=== PATIENT | female | born 1965 | race Caucasian/White ===

== ENCOUNTER 2017-02-19 13:13 | Emergency (ER) | payer MEDICARE, MEDICAID ==
[2017-02-19 13:27] VITALS: BP 121/88
--- NOTE | 2017-02-19 14:32 | UC ---
Skin Complaint HPI - HPI Summary HPI Summary: 51 y/o female presents to the urgent care c/o rash that started 3 weeks ago when she was in [place]. She states she was walking at night time and a mosquito bit her left tight. Next day she wake up with a rash and her Rt eye was mildly swollen. Now the rash has been appearing in different parts of the body since then. Today rash is in her abdomen, back of neck, left tight arm. It itches a lot. Patient denies SOB, fever, N/V/D, chest pain, headaches. Pt reports she has an appt this coming Thursday with her psychiatrist Dr Rich - History of Current Complaint Chief Complaint: UCSkin Time Seen by Provider: 02/19/17 14:06 Stated Complaint: RASH Hx Obtained From: Patient Hx Last Menstrual Period: 2 weeks ago ?: No Onset/Duration: Sudden Onset, Lasting Days, Still Present Skin Exposure Onset/Duration: Days Ago - 3 weeks ago Onset Severity: Moderate Current Severity: Moderate Pain Intensity: 0 Pain Scale Used: 0-10 Numeric Location: Diffuse - abdomen, RT antecubital fossa of Rt arm, left thight, back of the neck Character: Pruritus Aggravating: Touch Alleviating: Nothing Associated Signs & Symptoms: Negative: Nausea, Vomiting, Numbness, Fever, Wheezing, Red Streaks Related History: Possible Reaction to: Insect - Allergy/Home Medications Allergies/Adverse Reactions: Allergies Allergy/AdvReac Type Severity Reaction Status Date / Time Bee Venom Allergy Severe Anaphylatic Verified 02/19/17 13:46 Shock Latex Allergy Severe Rash Verified 02/19/17 13:46 Home Medications: Home Medications Ferrous Sulfate [Fe Tabs] 1 tab PO DAILY 02/19/17 [History Confirmed 02/19/17] Review of Systems Constitutional: Negative Skin: Rash Eyes: Negative ENT: Negative Respiratory: Negative Cardiovascular: Negative Gastrointestinal: Negative Genitourinary: Negative Motor: Negative Neurovascular: Negative Musculoskeletal: Negative Neurological: Negative Psychological: Negative All Other Systems Reviewed And Are Negative: Yes PMH/Surg Hx/FS Hx/Imm Hx Previously Healthy: Yes Psychological History: Bipolar Disorder - Surgical History Surgical History: None Surgery Procedure, Year, and Place: TONSILLECTOMY A CHILD - Family History Known Family History: Positive: Hypertension, Other Negative: Cardiac Disease, Diabetes Family History: lung cancer - Social History Alcohol Use: Occasionally Substance Use Type: None Smoking Status (MU): Former Smoker Type: Cigarettes Amount Used/How Often: 1 pack per week Have You Smoked in the Last Year: Yes When Did the Patient Quit Smoking/Using Tobacco: 20+ years Household Exposure Type: Cigarettes - Immunization History Most Recent Tetanus Shot: UNSURE Physical Exam Triage Information Reviewed: Yes Appearance: Well-Appearing, No Pain Distress, Well-Nourished, Obese Vital Signs: Initial Vital Signs Temp 98.3 F 02/19/17 13:27 Pulse 93 02/19/17 13:27 Resp 16 02/19/17 13:27 BP 121/88 02/19/17 13:27 Pulse Ox 100 02/19/17 13:27 Vital Signs Reviewed: Yes Eye Exam: Normal Eyes: Positive: Conjunctiva Clear ENT Exam: Normal ENT: Positive: Hearing grossly normal, Pharynx normal, TMs normal. Negative: Nasal congestion Dental Exam: Normal Neck exam: Normal Neck: Positive: Nontender. Negative: No Lymphadenopathy Respiratory Exam: Normal Respiratory: Positive: Chest non-tender, Lungs clear, Normal breath sounds Cardiovascular Exam: Normal Cardiovascular: Positive: RRR, No Murmur, Pulses Normal Abdominal Exam: Normal Abdomen Description: Positive: Nontender, No Organomegaly Bowel Sounds: Positive: Present Musculoskeletal Exam: Normal Musculoskeletal: Positive: Strength Intact, ROM Intact, No Edema Neurological Exam: Normal Neurological: Positive: Alert, Muscle Tone Normal Psychological Exam: Normal Skin: Positive: rashes - Positive erythematous eruption with small papules, spread in different parts of the body:Left tight, upper abdomen and lower abdomen. Rt antecubital fossa spreading to the forearm, back of the neck spreading to the scalp. no swelling. postive signs of scoriation Course/Dx - Course Course Of Treatment: rash:Positive erythematous eruption with small papules, spread in different parts of the body:Left tight, upper abdomen and lower abdomen. Rt antecubital fossa spreading to the forearm, back of the neck spreading to the scalp. no swelling. postive signs of scoriation.Pt with Hx of bee sting. Patient Rx Benadryl and hydrocortisone topical to alleviate symptoms ad advised to f/u with blow moulding machine operator if rash doen't resolve in 1 week. Patient understood and agreed. - Differential Diagnoses - Skin Complaint Differential Diagnoses: Contact Dermatitis, Eczema, Poison Dee, Scabies - Diagnoses Provider Diagnoses: unspecified rash Discharge - Discharge Plan Condition: Stable Disposition: HOME Prescriptions: Hydrocortisone 1% CREAM* 1 applic TOPICAL TID #1 applic diPHENhydraMINE PO* [Benadryl PO 25 MG TAB*] 25 mg PO TID #21 tab Patient Education Materials: Acute Rash (ED) Referrals: Ramírez MONTERROSO,Amanda Villareal [Primary Care Provider] - [facility] [Outside] - 1 Week (if rash does not resolve please call Physician referral center to make an appt with a desrmatologist) Additional Instructions: Please take medications as directed to alleviate symptoms. If symptoms worsen please return to the urgent care of PCP for further evaluation and treatment. if rash does not resolve please call Physician referral center to make an appt with a desrmatologist
== END 2017-02-19 14:54 | disposition home or self-care (01) ==
LOC: UCEAST 13:13
DX: R21 Rash and other nonspecific skin eruption (principal); F31.9 Bipolar disorder, unspecified; F17.210 Nicotine dependence, cigarettes, uncomplicated; Z91.030 Bee allergy status; Z91.040 Latex allergy status
CPT/HCPCS: 99212; G0463

== ENCOUNTER 2017-02-20 19:46 | Emergency (ER) | payer MEDICARE, MEDICAID ==
[2017-02-20] MEDS ORDERED: Ketorolac INJ* 30 MG/ML 1 ML VIAL IM ONE (21:26)
[2017-02-20] MEDS ORDERED: Metoclopramide IV* 5 MG/ML 2 ML VIAL ONE (21:27)
[2017-02-20] MEDS ORDERED: diPHENhydraMINE IV* 50 MG/ML 1 ml VIAL (BENADRYL) IM ONE (21:28)
[2017-02-20 22:11] VITALS: BP 138/78
--- NOTE | 2017-02-20 22:53 | UC ---
Guerita Canas SooYoung, scribed for Joe Guadarrama MD on 02/20/17 at 2058 . Headache HPI - HPI Summary HPI Summary: A 51 y/o F presents to [facility] with c/o bilat migraine at base of head onset today. Pt was seen at [facility] last night for c/o abd rash and rash on back of neck, D/C home with hydrocortisone and Benadryl, but states she has not taken it yet. Associated sx today: mild nausea, hot flashes, light sensitivity, neck pain. Denies: seeing flashing light. No new soaps or perfumes. Pt has an allergy to bees. Recent travel to [place] about 3 weeks ago and was bit on L upper thigh. The area became pruritic, swollen, erythematous. Two days later R eye was swollen shut, clear discharge. She states after flying, the top of her L foot was swollen, toes were becoming purple. She also states having red, pruritic blisters on inside of R elbow. States she is a non-smoker. PMHx: cervicalgia, neuropathy. - History Of Current Complaint Chief Complaint: UCHeadache Stated Complaint: HEADACHE,BUG BITES,RASH Time Seen by Provider: 02/20/17 20:55 Hx Obtained From: Patient, Family/Contract Programmer - sister present Hx Last Menstrual Period: 2 weeks ago Onset/Duration: Still Present Onset Of Symptoms: Still Present Currently Pain Is: Severe Pain Intensity: 8 Pain Scale Used: 0-10 Numeric Timing: Constant - Allergies/Home Medications Allergies/Adverse Reactions: Allergies Allergy/AdvReac Type Severity Reaction Status Date / Time Bee Venom Allergy Severe Anaphylatic Verified 02/19/17 13:46 Shock Latex Allergy Severe Rash Verified 02/19/17 13:46 PMH/Surg Hx/FS Hx/Imm Hx Previously Healthy: No - cervicalgia, sciatica - Surgical History Surgical History: None Surgery Procedure, Year, and Place: TONSILLECTOMY A CHILD - Family History Known Family History: Positive: Hypertension, Other Negative: Cardiac Disease, Diabetes Family History: lung cancer - Social History Occupation: Employed Full-time Lives: Alone Alcohol Use: Occasionally Substance Use Type: None Smoking Status (MU): Former Smoker Type: Cigarettes Amount Used/How Often: 1 pack per week Have You Smoked in the Last Year: Yes When Did the Patient Quit Smoking/Using Tobacco: 20+ years Household Exposure Type: Cigarettes - Immunization History Most Recent Tetanus Shot: UNSURE Review of Systems Neurological: Headache - migraine All Other Systems Reviewed And Are Negative: Yes Physical Exam Triage Information Reviewed: Yes Vital Signs: Initial Vital Signs Temp 99.6 F 02/20/17 19:52 Pulse 93 02/20/17 19:52 Resp 18 02/20/17 19:52 BP 150/85 02/20/17 19:52 Vital Signs Reviewed: Yes - Additional Comments The patient is well-nourished in no acute distress and in no acute pain. NON- TOXIC APPEARING. The skin is warm and dry and skin color reflects adequate perfusion. MACULAR NON -VESICULAR RASH IN ANTECUBITAL FOSSA IN R ARM, POSSIBLY HEAT RASH OR CONTACT DERMATITIS. ISOLATED BLOTCHES ON R ARM; NO BURROWING. WELL CIRCUMSCRIBED AREA ON L THIGH, DOESN'T MARTITA, NON-VESICULAR. ERYTHEMATOUS AREA AROUND HAIRLINE AT NECK, NON-VESICULAR. HEENT: The head is normocephalic and atraumatic. The pupils are equal and reactive. The conjunctivae are clear and without drainage. Nares are patent and without drainage. Mouth reveals moist mucous membranes and the throat is without erythema and exudate. The external ears are intact. The ear canals are patent and without drainage. The tympanic membranes are intact. NO PHOTOPHOBIA. Neck is supple with full range of motion and non-tender. There are no carotid bruits. There is no neck vein distension. NO NUCHAL RIGIDITY. Respiratory: Chest is non-tender. Lungs are clear to auscultation and breath sounds are symmetrical and equal. Cardiovascular: Heart is regular rate and rhythm. There is no murmur or rub auscultated. There is no peripheral edema and pulses are symmetrical and equal. Abdomen: The abdomen is soft and non-tender, OBESE. There is no organomegaly palpated. RED MACULAR RASH, NON VESICULAR, POSSIBLY CONTACT DERMATITIS ON HER PANUS. Musculoskeletal: There is no back pain noted. Extremities are non-tender with full range of motion. There is good capillary refill. There is no peripheral edema or calf tenderness elicited. GOOD PULSES DISTALLY. Neurological: Patient is alert and oriented to person, place and time. The patient has symmetrical motor strength in all four extremities. Cranial nerves are grossly intact. Deep tendon reflexes are symmetrical and equal in all four extremities. Psychiatric: The patient has an appropriate affect and does not exhibit any anxiety or depression. Headache Course/Dx - Course Course Of Treatment: Pt medications reviewed this visit. Elevated blood pressure without diagnosis of hypertension. - Differential Dx/Diagnosis Provider Diagnoses: Migraine. Contact dermatitis. Elevated blood pressure without diagnosis of hypertension. Discharge - Discharge Plan Condition: Stable Disposition: HOME Patient Education Materials: Migraine Headache (ED), Contact Dermatitis (ED) Referrals: Amanda Friedman [Primary Care Provider] - (Follow up on Thursday.) Additional Instructions: Your blood pressure reading today was 150/85, which is HYPERTENSIVE. Follow-up with your primary care provider within 4 weeks for blood pressure readings and further evaluation. Follow up with your primary care provider on 02/23/2017. Continue taking the prescriptions provided to you on your previous visit to Urgent Care. The documentation as recorded by the Guerita bond SooYoung accurately reflects the service I personally performed and the decisions made by me, Joe Guadarrama MD.
== END 2017-02-20 22:05 | disposition home or self-care (01) ==
LOC: UCEAST 19:46
DX: G43.909 Migraine, unspecified, not intractable, without status migrainosus (principal); L25.9 Unspecified contact dermatitis, unspecified cause; R03.0 Elevated blood-pressure reading, without diagnosis of hypertension; Z91.030 Bee allergy status; Z91.040 Latex allergy status; Z87.891 Personal history of nicotine dependence
CPT/HCPCS: 96372; 99212; G0463; J1200; J1885

== ENCOUNTER 2018-08-20 09:07 | Emergency (ER) | payer MEDICARE, MEDICAID ==
--- OUTSIDE RECORDS SUMMARY | 2018-08-20 09:14 | XMS REPORT | Continuity of Care Document ---
:1965 External Reference #:[id number] Author Name Bradley Calero M.D. Address [address] [place] [address] [address] [place] [address] Care Team Providers Name Role Phone HCP given Primary Care Physician Unavailable Payers Type Date Identification Numbers Payment Provider Subscriber Effective: [facility]: [id number] [facility] 2009 Services PayID: [id number] [address] [place] [address] Effective: 2013 Policy Number: [id number] Medicaid Tanmay Issa PayID: [id number] [address] [place] [address] Advance Directives Description No Information Available Problems Date Description Provider Status Onset: 05/31/2011 Backache Bradley Calero M.D. Active Onset: 05/31/2011 Bipolar disorder Bradley Calero M.D. Active Onset: 04/25/2013 Internal hemorrhoids without Juan F Roper D.O. Active complication Onset: 04/25/2013 Slow transit constipation Juan F Roper D.O. Active Onset: 09/19/2013 Neck pain Juan F Roper D.O. Active Onset: 09/19/2013 Brachial neuritis Juan F Roper D.O. Active Onset: 04/11/2015 Vitamin D deficiency Juan F Roper D.O. Active Onset: 04/11/2015 Psoriasis Juan F Roper D.O. Active Onset: 04/11/2015 Gastroesophageal reflux disease Juan F Roper D.O. Active Onset: 05/21/2015 Iron deficiency anemia Juan F Roper D.O. Active Onset: 08/20/2016 Sciatica Amanda Elmore PA Active Onset: 11/06/2016 Degeneration of lumbosacral Amanda Elmore PA Active intervertebral disc Onset: 11/06/2016 Degeneration of cervical Amanda Elmore PA Active intervertebral disc Onset: 03/11/2017 Cervical disc disorder Amanda Elmore PA Active Family History Date Family Member(s) Problem(s) Comments General Multiple family members w/ depression, alcoholism, "probably bipolar big time". 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 On SSD as of 2008. Abuse No history of abuse Tobacco Use Reviewed: 08/26/17 Patient is a current rarely cigarette smoker, smokes some days Tobacco Use Start: Unknown End: Former Cigarette Smoker quit summer 2017 Unknown ETOH Use Rare Alcohol Use Recreational Drug Use Denies Drug Use Tobacco Use Start: Unknown Patient is a current With alcohol smoker, smokes some days Tobacco Use Start: Unknown End: Patient is a former quit summer 2017 Unknown smoker Smoking Status Reviewed: 07/12/18 Patient is a former quit summer 2017 smoker Sun Exposure Minimum amount of sun exposure. Uses sunscreen Seat Belt/Car Seat Always uses a seat belt Currently Active The patient is currently not sexually active Contraceptive Methods Current methods of control used include diaphragm Allergies, Adverse Reactions, Alerts Date Description Reaction Status Severity Comments 11/09/2007 Latex Active 05/10/2010 Bee Sting Active Medications Medication Date Status Form Strength Qnty SIG Indications Ordering Provider Keflex 07/21/ Active Capsules 500mg 30caps 1 tab by L03.311 wagner, 2017 mouth Bradley, three M.D. times a day x10 days Abilify 06/30/ Active Tablets 10mg take one 2017 tablet by Bradley, mouth M.D. every day for mood Lipoic Acid 12/29/ Active daily Unknown 2017 Zinc 12/29/ Active 1 daily Unknown 2017 Alpha Betic 02/22/ Active Capsules 200mg as Unknown 2017 directed Hydrocortisone 02/19/ Active Cream 1% Apply To Unknown 2017 Affected Area S Three Times A Day Ferrous Sulfate / Active Tablets 325(65Fe) 180tab take 1 [place], 2015 mg s tablet by Juan F, mouth two D.O. times daily Vitamin D3 04/11/ Active Capsules 5000Unit 90caps take one E55.9 2014 capsule Juan F, by mouth D.O. every day or 7 tablets once a week Epipen 2-Karl 04/11/ Active Solution 0.3mg/0.3M 2units use as T63.94xA Krystian Calero Auto-Injec sheela Narvaez for M.D. insect sting causing swelling of throat or severe reaction, then go to hospital. Z91.030 Calcipotriene 04/11/2015 Active Cream 0.005% 60units Apply To L40.0 [place], Affected Juan F, Area(S) Two D.O. Times Daily For Relief Of Psoriasis Omeprazole 10/04/[address] 20mg 90caps take 1 R11.0 [place], capsule by Juan F, mouth once D.O. daily K21.9 [place] Carbonate 07/06/2012 Active Tablets 150mg 5 po qhs F31.81 Unknown Diazepam 10/18/2007 Active Tablets 5mg 60tabs 1/2-1 PO bid F31.81 Unknown For Anxiety prn F41.9 M62.838 Abilify Hx Tablets 5mg 30tabs 1/2 tab qhs Unknown 018 - 018 Hydroxyzine Pamoate Hx Capsules 25mg 90caps take one Z91.038 [place], 017 - capsule by Juan F, D.O. mouth three 017 times a day as needed for anxiety/itchin g will make you drowsy R21 Banophen 02/19/2017 - Hx Capsules 25mg 21caps Take One Unknown 02/23/2017 Capsule By Mouth Three Times A Day x 7 days Benadryl Allergy 02/19/2017 - Hx Tablets 25mg 21tabs 1 tablet by Unknown 02/23/2017 mouth three times daily Orphenadrine 08/24/2016 - Hx Tablets ER 100mg 60tabs Take 1 Tablet M5 [place], Citrate ER 10/14/2016 12HR By Mouth Two 4. Amanda, PA Times Daily as 40 Needed For Spasms Keflex 08/20/2016 - Hx Capsules 500mg 30caps 1 tab by mouth L0 [place], 10/14/2016 three times a 2. ANABELL Patel day x10 days 41 1 Metaxalone 08/20/2016 - Hx Tablets 800mg 90tabs 1 tab by mouth M5 [place], 08/24/2016 three times a 4. ANABELL Patel day as needed 40 spasms Cyclobenzaprine 06/25/2016 - Hx Tablets 10mg 90tabs 1 tab by mouth M5 [place], HCL 08/20/2016 three times a 4. ANABELL Patel day as needed 5 for spasms Vitamin D 05/21/2015 - Hx Capsules 96299Uk take 1 capsule [place], (Ergocalciferol) 05/21/2015 it by mouth every Juan F, week D.O. Iron Supplement 04/12/2015 - Hx Tablets 325(65F 180tabs 1 by mouth bid [facility], 06/24/2016 e) mg Juan F, D.O. Vitamin D 04/10/2015 - Hx Tablets daily Unknown 05/21/2015 Benzoyl 07/17/2014 - Hx Gel 5-3% 46.600gm apply to skin 70 [facility], Peroxide-Erythromy 10/10/2015 twice a day. 4. Juan F, julieta 8 D.O. Epipen 2-Karl 01/26/2014 - Hx Soaj 0.3mg/0 1units use as 98 [facility], 04/11/2015 .3ML directed for 9. Juan F, anaphylactic 5 D.O. reactions to bee stings V15.06 Trazodone HCL 09/19/2013 - Hx Tablets 50mg 1 po at hs Unknown 01/25/2014 Lidocaine HCL 04/26/2013 - Hx Gel 2% 30ml apply to area 455.0 [facility], 09/19/2013 qid prn Clark Rogel.O. Anusol-HC 04/25/2013 - Hx Cream 2.5% 1units [address] 455.0 [facility], 09/19/2013 of rectum Juan F D.O. every 3 hours Magnesium 04/25/2013 - Hx Powder 1bottl 1 tsp by 564.0 [facility], Citrate 09/19/2013 e mouth every 1 Juan F, D.O. day titrate to daily soft stool Lidocaine 04/25/2013 - Hx Cream 3% 1units [address] 455.0 [facility], 04/26/2013 of rectum Juan F, D.O. four times a day as needed Celebrex 09/07/2012 - Hx Capsules 200mg 90caps Take 1 [facility]8 [facility] 02/[facility]2017 Capsule By 9 Juan F, D.O. Mouth One Time Daily O71.6 M54.2 Tizanidine HCL 09/07/2012 - Hx Tablets 4mg 90tabs Take 1/2 To M54.89 [facility], 03/10/2017 1 Tablet By Juan F, D.O. Mouth One Time Daily as Needed -- Maximum Dose Of 1 Per Day M62.40 M54.2 Abilify 08/25/2012 - Hx Tablets 5mg 1 po every day 296.89 Unknown 01/21/2013 Gabapentin 06/21/2012 - Hx Capsules 100mg 1-2 capsules po F31.81 [facility], 02/23/2017 up to 3 times a Juan F, D.O. day M54.2 M54.12 Gabapentin 03/02/2012 - Hx Capsules 300mg 1 po capsule Unknown 09/19/2013 prn Triamcinolone 09/10/2011 - Hx Cream 0.1% 30gm apply a thin L29. [place] , Acetonide 06/24/2016 layer to 9 Bradley, affected M.D. area on left forearm twice a day as needed for itching Anusol-HC 05/31/2011 - Hx Cream 2.5% 30gm apply to 455. [place], 04/11/2015 affected 5 Bradley, area as M.D. needed twice daily (for hemorrhoids) Gabapentin 01/28/2010 - Hx Capsules 300mg 90ca 1 po Qam and 296. Unknown 05/09/2010 ps 1-2 po qhs 89 Lamotrigine 01/28/2010 - Hx 25mg 1 po qd 296. Unknown 05/10/2010 89 Abilify 01/28/2010 - Hx Tablets 15mg 1 po qd 296. Unknown 05/30/2011 89 Abilify 11/07/2008 - Hx Tablets 10mg 1 po qd 296. Unknown 01/28/2010 89 [place] Carbonate 11/01/2008 - Hx Tablets 300mg 1 po bid 296. Unknown 01/28/2010 89 Lamictal 11/01/2008 - Hx Tablets 100mg 1 po bid 296. Unknown 01/29/2010 89 Clindamycin HCL 10/30/2008 - Hx Capsules 300mg 28ca 1 po qid 682. Unknown 11/06/2008 ps 0 Amoxicillin/Clavu 10/30/2008 - Hx Tablets 875mg/125 20ta one tablet 682. Unknown lanate Potassium 11/09/2008 bs po bid with 0 food Prilosec 05/24/2008 - Hx Capsules DR 20mg 30ca Take One 787. Abdias, 10/04/2012 ps Capsule By Bradley, Mouth Every M.D. Day For Acid Reflux 530.81 Zanaflex 01/12/2008 - Hx Capsules 4mg 1/2-1 PO qd 728.85 Daniel Klein , DO 01/29/2010 724.2 724.5 Flexeril 04/09/2007 - Hx Tablets 10mg 30tabs 1 po tid 724.2 klepack 05/20/2007 do not operate heavy equipment while on meds Physical 04/09/2007 - Hx functional 724.2 klepack Therapy 11/09/2007 capacity exam. Physical 03/15/2007 - Hx for low back and 665.64 [place], Therapy 05/10/2010 pelvic pain post Bradley, M.D. Epipen 2-Karl 03/15/2007 - Hx Device 1:1000 1units use as directed 989.5 Abdias, 01/26/2014 for anaphylactic Bradley, reactions to bee M.D. stings Immunizations CPT Code Status Date Vaccine Lot # [id number] Given 07/21/2018 Influenza Virus Vaccine, Quadrivalent, Split, [id number] Preservative Free 69295 Given 08/20/2016 Influenza Virus Vaccine, Quadrivalent, Split, [id number] Preservative Free 66658 Given 10/10/2015 Influenza Virus Vaccine, Quadrivalent, Split, [id number] Preservative Free 09757 Given 05/31/2011 Adacel or Boostrix, TDaP [id number] 07985 Given 05/31/2011 Flu, Split Virus 3Yrs [id number] 23951 Given 03/21/2006 Flu, Split Virus 3Yrs 09756 Given 09/14/2005 Td Immunization Vital Signs Date Vital Result Comment 07/21/2018 9:08am BP Systolic 114 mmHg BP Diastolic 70 mmHg 07/07/2018 11:34am BP Systolic 112 mmHg BP Diastolic 72 mmHg Weight 165.00 lb with shoes 02/11/2018 10:21am BP Systolic 126 mmHg BP Diastolic 70 mmHg Height 61.75 inches 5'1.75" Weight 169.00 lb BMI (Body Mass Index) 31.2 kg/m2 12/30/2017 3:07pm BP Systolic 112 mmHg BP Diastolic 74 mmHg Weight 171.00 lb w/shoes 08/26/2017 11:09am BP Systolic 128 mmHg BP Diastolic 76 mmHg Height 61.25 inches 5'1.25" Weight 177.00 lb BMI (Body Mass Index) 33.2 kg/m2 03/11/2017 1:07pm BP Systolic 116 mmHg BP Diastolic 64 mmHg 02/23/2017 2:27pm BP Systolic 118 mmHg BP Diastolic 70 mmHg Body Temperature 98.1 F Height 61 inches 5'1" Weight 161.00 lb BMI (Body Mass Index) 30.4 kg/m2 10/15/2016 10:17am BP Systolic 118 mmHg BP Diastolic 76 mmHg Weight 159.00 lb 08/20/2016 10:40am BP Systolic 112 mmHg BP Diastolic 76 mmHg Weight 153.00 lb 06/25/2016 2:43pm BP Systolic 118 mmHg BP Diastolic 70 mmHg Body Temperature 98.0 F Height 61.25 inches 5'1.25" Weight 153.00 lb BMI (Body Mass Index) 28.7 kg/m2 10/10/2015 2:25pm BP Systolic 102 mmHg BP Diastolic 66 mmHg Height 61 inches 5'1" Weight 153.00 lb BMI (Body Mass Index) 28.9 kg/m2 05/21/2015 9:10am BP Systolic 108 mmHg BP Diastolic 60 mmHg Weight 148.00 lb with sandals 04/18/2015 4:10pm BP Systolic 106 mmHg BP Diastolic 50 mmHg 04/11/2015 1:17pm BP Systolic 112 mmHg BP Diastolic 68 mmHg Height 61.25 inches 5'1.25" Weight 144.00 lb BMI (Body Mass Index) 27.0 kg/m2 07/17/2014 12:11pm BP Systolic 126 mmHg BP Diastolic 54 mmHg Heart Rate 69 /min Weight 128.00 lb 04/03/2014 10:16am BP Systolic 104 mmHg BP Diastolic 58 mmHg Height 62.5 inches shoes on Weight 125.00 lb shoes on BMI (Body Mass Index) 22.5 kg/m2 01/26/2014 4:52pm BP Systolic 112 mmHg BP Diastolic 56 mmHg Weight 127.00 lb 12/28/2013 1:36pm BP Systolic 112 mmHg BP Diastolic 56 mmHg Weight 128.00 lb 11/24/2013 2:42pm BP Systolic 130 mmHg BP Diastolic 68 mmHg Weight 132.00 lb boots on 11/14/2013 9:23am BP Systolic 110 mmHg BP Diastolic 72 mmHg Weight 134.00 lb 10/10/2013 12:15pm BP Systolic 110 mmHg BP Diastolic 54 mmHg Heart Rate 62 /min 09/19/2013 2:45pm BP Systolic 114 mmHg BP Diastolic 64 mmHg Height 62.5 inches 5'2.50" shoes on Weight 136.00 lb shoes and jackets on BMI (Body Mass Index) 24.5 kg/m2 04/25/2013 11:52am BP Systolic 110 mmHg BP Diastolic 66 mmHg Height 62.50 inches 5'2.50" Weight 130.00 lb BMI (Body Mass Index) 23.4 kg/m2 09/22/2012 2:18pm BP Systolic 118 mmHg BP Diastolic 78 mmHg Height 62 inches 5'2" Weight 143.00 lb BMI (Body Mass Index) 26.2 kg/m2 09/10/2011 11:37am BP Systolic 124 mmHg BP Diastolic 68 mmHg Weight 136.00 lb 05/31/2011 9:27am BP Systolic 98 mmHg BP Diastolic 52 mmHg Height 61.5 inches 5'1.50" Weight 137.00 lb BMI (Body Mass Index) 25.5 kg/m2 05/10/2010 9:05am BP Systolic 104 mmHg BP Diastolic 66 mmHg Height 62 inches 5'2" Weight 126.00 lb BMI (Body Mass Index) 23.0 kg/m2 01/29/2010 3:52pm BP Systolic 100 mmHg BP Diastolic 64 mmHg Weight 140.00 lb Last Menstrual Period 0 05/08/2009 2:47pm BP Systolic 120 mmHg BP Diastolic 78 mmHg Weight 157.00 lb Last Menstrual Period 0 11/07/2008 10:04am BP Systolic 116 mmHg BP Diastolic 70 mmHg Weight 162.00 lb 11/01/2008 3:27pm BP Systolic 126 mmHg BP Diastolic 64 mmHg Body Temperature 98.2 F Weight 161.00 lb 05/24/2008 9:39am BP Systolic 120 mmHg BP Diastolic 70 mmHg Weight 156.00 lb 03/13/2008 11:32am BP Systolic 100 mmHg BP Diastolic 70 mmHg Weight 166.00 lb Last Menstrual Period 0 01/12/2008 1:34pm BP Systolic 124 mmHg standing BP Diastolic 72 mmHg standing Weight 165.00 lb 12/24/2007 1:09pm BP Systolic 118 mmHg BP Diastolic 76 mmHg 12/14/2007 11:12am BP Systolic 132 mmHg BP Diastolic 96 mmHg Body Temperature 98.3 F Height 62 inches 5'2" Weight 160.00 lb BMI (Body Mass Index) 29.3 kg/m2 Last Menstrual Period 0 11/09/2007 2:05pm BP Systolic 116 mmHg BP Diastolic 80 mmHg Height 62 inches 5'2" Weight 170.00 lb BMI (Body Mass Index) 31.1 kg/m2 10/08/2007 11:56am BP Systolic 118 mmHg BP Diastolic 66 mmHg Height 62 inches 5'2" Weight 170.00 lb BMI (Body Mass Index) 31.1 kg/m2 Last Menstrual Period 0 07/19/2007 11:23am BP Systolic 106 mmHg BP Diastolic 78 mmHg Height 62 inches 5'2" Weight 175.00 lb BMI (Body Mass Index) 32.0 kg/m2 Last Menstrual Period 0 05/20/2007 9:26am BP Systolic 118 mmHg BP Diastolic 80 mmHg Height 62 inches 5'2" Weight 178.00 lb BMI (Body Mass Index) 32.6 kg/m2 04/09/2007 3:08pm BP Systolic 122 mmHg BP Diastolic 70 mmHg Height 62 inches 5'2" Weight 183.00 lb BMI (Body Mass Index) 33.5 kg/m2 03/15/2007 2:01pm BP Systolic 120 mmHg BP Diastolic 90 mmHg Height 62 inches 5'2" Weight 183.00 lb BMI (Body Mass Index) 33.5 kg/m2 Last Menstrual Period 0 Results Test Date Facility Test Result H/L Range Note Laboratory test 07/21/2018 [facility] Cytology <pending> finding [phone] Laboratory test 07/12/2018 [facility] [place] 0.65 mmol/L 0.6-1.2 finding [phone] Comp Metabolic Panel 07/12/2018 [facility] Sodium 140 mmol/L 135- 145 [phone] Potassium 4.5 mmol/L 3.5-5.0 Chloride 109 mmol/L 101-111 Co2 Carbon Dioxide 27 mmol/L 22-32 Anion Gap 4 mmol/L 2-11 Glucose 85 mg/dL 70-100 Blood Urea Nitrogen 13 mg/dL 6-24 Creatinine 0.73 mg/dL 0.51-0.95 BUN/Creatinine Ratio 17.8 8-20 Calcium 9.5 mg/dL 8.6-10.3 Total Protein 6.4 g/dL 6.4-8.9 Albumin 4.3 g/dL 3.2-5.2 Globulin 2.1 g/dL 2-4 Albumin/Globulin Ratio 2.0 1-3 Total Bilirubin 0.40 mg/dL 0.2-1.0 Alkaline Phosphatase 68 U/L 34-104 Alt 24 U/L 7-52 Ast 21 U/L 13-39 Egfr Non- 83.4 >60 Egfr 100.9 >60 1 Laboratory test 12/17/2017 [facility] Hemoglobin A1c 5.0 % 4.0-5.6 2 finding [phone] (Glyco HGB) Laboratory test 12/17/2017 [facility] [place] 0.87 mmol/L 0.6-1.2 finding [phone] TSH (Thyroid Stim Horm) 1.30 mcIU/mL 0.34-5.60 Free T4 (Free Thyroxine) 0.95 ng/dL 0.61-1.12 T3 Free 3.40 pg/mL 2.5-3.9 Insulin Level 12.9 mcIU/mL 2.6 - 24.9 3 Ceruloplasmin 28.1 mg/dL 4 Copper, Serum 1.04 g/mL 0.75-1.45 5 Zinc Serum 0.74 g/mL 0.66-1.10 6 T3 Reverse 16 ng/dL 10-24 7 Lipid Profile (Trig/Chol/HDL) 12/17/2017 [facility] Triglycerides 109 mg/dL 8 [phone] Cholesterol 185 mg/dL 9 HDL Cholesterol 44.4 mg/dL 10 LDL Cholesterol 119 mg/dL 11 Creatinine 12/17/2017 [facility] Creatinine 0.74 mg/dL 0.51-0.95 [phone] Egfr Non- 82.1 >60 Egfr 105.6 >60 12 Laboratory test finding 12/17/2017 [facility] Glucose 94 mg/dL 70- 100 [phone] Blood Urea Nitrogen BUN 13 mg/dL 6-24 Lipid Profile (Trig/Chol/HDL) 09/27/2016 [facility] Triglycerides 57 mg /dL 13 [phone] Cholesterol 182 mg/dL 14 HDL Cholesterol 52.3 mg/dL 15 LDL Cholesterol 118 mg/dL 16 Laboratory test finding 09/27/2016 [facility] Glucose 92 mg/dL 70- 100 [phone] Blood Urea Nitrogen BUN 11 mg/dL 6-24 [place] 0.81 mmol/L 0.6-1.2 TSH (Thyroid Stim Horm) 1.10 mcIU/mL 0.34-5.60 Vitamin D Total 25(Oh) 39.0 ng/mL 30-50 Hemoglobin A1c (Glyco HGB) 5.2 % Less than 6.0 17 Laboratory test 08/25/2016 [facility] Wound Culture/Sensi SEE RESULT 18, 19 finding [phone] BELOW MRSA/S. aureus Ssti PCR SEE RESULT BELOW 20 CBC Auto Diff 06/25/2016 [facility] White Blood Count 7.9 10^3/uL 3.5-10.8 21 [phone] Red Blood Count 4.81 10^6/uL 4.0-5.4 Hemoglobin 15.2 g/dL 12.0-16.0 Hematocrit 45 % 35-47 Mean Corpuscular Volume 94 fL 80-97 Mean Corpuscular Hemoglobin 32 pg High 27-31 Mean Corpuscular HGB Conc 33 g/dL 31-36 Red Cell Distribution Width 13 % 10.5-15 Platelet Count 227 10^3/uL 150-450 Mean Platelet Volume 10 um3 7.4-10.4 Abs Neutrophils 5.7 10^3/uL 1.5-7.7 Abs Lymphocytes 1.5 10^3/uL 1.0-4.8 Abs Monocytes 0.5 10^3/uL 0-0.8 Abs Eosinophils 0.2 10^3/uL 0-0.6 Abs Basophils 0.1 10^3/uL 0-0.2 Abs Nucleated RBC 0.02 10^3/uL Granulocyte % 71.4 % 38-83 Lymphocyte % 19.1 % Low 25-47 Monocyte % 5.8 % 1-9 Eosinophil % 3.0 % 0-6 Basophil % 0.7 % 0-2 Nucleated Red Blood Cells % 0.2 Comp Metabolic Panel 06/25/2016 [facility] Sodium 139 mmol/L 133- 145 [phone] Potassium 4.3 mmol/L 3.5-5.0 Chloride 105 mmol/L 101-111 Co2 Carbon Dioxide 28 mmol/L 22-32 Anion Gap 6 mmol/L 2-11 Glucose 86 mg/dL 70-100 Blood Urea Nitrogen 12 mg/dL 6-24 Creatinine 0.80 mg/dL 0.51-0.95 BUN/Creatinine Ratio 15.0 8-20 Calcium 9.3 mg/dL 8.6-10.3 Total Protein 6.5 g/dL 6.4-8.9 Albumin 4.0 g/dL 3.2-5.2 Globulin 2.5 g/dL 2-4 Albumin/Globulin Ratio 1.6 1-3 Total Bilirubin 0.30 mg/dL 0.2-1.0 Alkaline Phosphatase 57 U/L 34-104 Alt 16 U/L 7-52 Ast 16 U/L 13-39 Egfr Non- 75.6 >60 Egfr 97.3 >60 22 Laboratory test 06/25/2016 [facility] Monospot Negative Negative finding [phone] CMV Igg/Igm 06/25/2016 [facility] Cytomegalovirus IgG Positive Negative 23 [phone] Antibody Cytomegalovirus IgM Antibody Negative Negative CBC Auto Diff 10/10/2015 [facility] White Blood Count 7.7 10^3/uL 3.5-10.8 [phone] Red Blood Count 4.48 10^6/uL 4.0-5.4 Hemoglobin 14.1 g/dL 12.0-16.0 Hematocrit 44 % 35-47 Mean Corpuscular Volume 98 fL High 80-97 Mean Corpuscular Hemoglobin 32 pg High 27-31 Mean Corpuscular HGB Conc 32 g/dL 31-36 Red Cell Distribution Width 13 % 10.5-15 Platelet Count 224 10^3/uL 150-450 Mean Platelet Volume 9 um3 7.4-10.4 Abs Neutrophils 5.7 10^3/uL 1.5-7.7 Abs Lymphocytes 1.3 10^3/uL 1.0-4.8 Abs Monocytes 0.4 10^3/uL 0-0.8 Abs Eosinophils 0.2 10^3/uL 0-0.6 Abs Basophils 0 10^3/uL 0-0.2 Abs Nucleated RBC 0 10^3/uL Granulocyte % 74.9 % 38-83 Lymphocyte % 16.7 % Low 25-47 Monocyte % 5.5 % 1-9 Eosinophil % 2.4 % 0-6 Basophil % 0.5 % 0-2 Nucleated Red Blood Cells % 0 Laboratory test 10/10/2015 [facility] Hepatitis C Nonreactive Nonreactive finding [phone] Antibody Comp Metabolic 10/10/2015 [facility] Sodium 137 mmol/L 133-145 Panel [phone] Potassium 4.1 mmol/L 3.5-5.0 Chloride 107 mmol/L 101-111 Co2 Carbon Dioxide 27 mmol/L 22-32 Anion Gap 3 mmol/L 2-11 Glucose 82 mg/dL 70-100 Blood Urea Nitrogen 12 mg/dL 6-24 Creatinine 0.75 mg/dL 0.51-0.95 BUN/Creatinine Ratio 16.0 8-20 Calcium 9.2 mg/dL 8.6-10.3 Total Protein 6.3 g/dL Low 6.4-8.9 Albumin 4.2 g/dL 3.2-5.2 Globulin 2.1 g/dL 2-4 Albumin/Globulin Ratio 2.0 1-3 Total Bilirubin 0.40 mg/dL 0.2-1.0 Alkaline Phosphatase 49 U/L 34-104 Alt 10 U/L 7-52 Ast 16 U/L 13-39 Egfr Non- 81.5 >60 Egfr 104.8 >60 24 Laboratory test finding 10/10/2015 [facility] Magnesium 2.0 mg/dL 1.9-2.7 [phone] TSH (Thyroid Stim Horm) 1.28 ?IU/mL 0.34-5.60 Vitamin B12 240 pg/mL 180-914 25 Vitamin D Total 25(Oh) 26.7 ng/mL Low 30-50 Erythrocyte Sed Rate 6 mm/Hr 0-30 C Reactive Protein < 1.00 mg/L < 5.00 26 Ferritin 47.2 ng/mL 11-307 Iron & Iron Binding Capacity 10/10/2015 [facility] Iron 48 g/dL Low 50-212 [phone] Unsaturated Iron Binding 295 g/dL Total Iron Binding Capacity 343 g/dL 250-450 % Iron Saturation 14 % Low 15-55 HIV 1/2 AB 10/10/2015 [facility] HIV 1 2 Nonreactive Nonreactive 27 Evaluation [phone] Antibody Laboratory 05/22/2015 [facility] Surgical SEE RESULT 28, test finding [phone] Pathology BELOW 29 Laboratory 05/22/2015 [facility] Clotest SEE RESULT 30 test finding [phone] BELOW CBC Auto Diff 05/21/2015 [facility] White Blood 8.0 10^3/uL 4.8- 10.8 [phone] Count Red Blood Count 4.65 10^6/uL 4.0-5.4 Hemoglobin 12.5 g/dL 12.0-16.0 Hematocrit 41 % 35-47 Mean Corpuscular Volume 88 fL 80-97 Mean Corpuscular Hemoglobin 27 pg 27-31 Mean Corpuscular HGB Conc 31 g/dL 31-36 Red Cell Distribution Width 27 % High 10.5-15 31 Platelet Count 215 10^3/uL 150-450 Mean Platelet Volume 9 um3 7.4-10.4 Abs Neutrophils 5.9 10^3/uL 1.5-7.7 Abs Lymphocytes 1.1 10^3/uL 1.0-4.8 Abs Monocytes 0.5 10^3/uL 0-0.8 Abs Eosinophils 0.4 10^3/uL 0-0.6 Abs Basophils 0.1 10^3/uL 0-0.2 Abs Nucleated RBC 0 10^3/uL Granulocyte % 74.0 % 38-83 Lymphocyte % 14.0 % Low 25-47 Monocyte % 6.1 % 1-9 Eosinophil % 5.0 % 0-6 Basophil % 0.9 % 0-2 Nucleated Red Blood Cells % 0 Laboratory test finding 05/21/2015 [facility] Ferritin 20.4 ng/mL 11 -307 [phone] Iron & Iron Binding 05/21/2015 [facility] Iron 36 g/dL Low 50-212 Capacity [phone] Unsaturated Iron Binding 367 g/dL Total Iron Binding Capacity 403 g/dL 250-450 % Iron Saturation 9 % Low 15-55 Retic Count 05/02/2015 [facility] Retic Count 1.9 % High 0.5-1.5 [phone] Corrected Retic Count 1.5 % 0.5-1.5 Maturation Factor Retic 1.5 Retic Index 1.00 Mean Retic Volume 122.8 Immature Retic Fraction 0.48 RBC Retic Count 4.26 10^6/uL Low 4.6-6.2 Hematocrit for Retic CNT 35 % 35-47 CBC Auto Diff 05/02/2015 [facility] White Blood Count 7.7 10^3/uL 4.8-10.8 [phone] Red Blood Count 4.26 10^6/uL 4.0-5.4 Hemoglobin 10.6 g/dL Low 12.0-16.0 Hematocrit 35 % 35-47 Mean Corpuscular Volume 82 fL 80-97 Mean Corpuscular Hemoglobin 25 pg Low 27-31 Mean Corpuscular HGB Conc 31 g/dL 31-36 Red Cell Distribution Width 28 % High 10.5-15 Platelet Count 219 10^3/uL 150-450 Mean Platelet Volume 9 um3 7.4-10.4 Abs Neutrophils 6.3 10^3/uL 1.5-7.7 Abs Lymphocytes 0.9 10^3/uL Low 1.0-4.8 Abs Monocytes 0.4 10^3/uL 0-0.8 Abs Eosinophils 0.2 10^3/uL 0-0.6 Abs Basophils 0.1 10^3/uL 0-0.2 Abs Nucleated RBC 0 10^3/uL Granulocyte % 81.0 % 38-83 Lymphocyte % 11.2 % Low 25-47 Monocyte % 4.6 % 1-9 Eosinophil % 2.5 % 0-6 Basophil % 0.7 % 0-2 Nucleated Red Blood Cells % 0 Iron & Iron Binding Capacity 04/12/2015 [facility] Iron 20 g/dL Low 50-212 [phone] Unsaturated Iron Binding 501 g/dL Total Iron Binding Capacity 521 g/dL High 250-450 % Iron Saturation 4 % Low 15-55 Laboratory test 04/12/2015 [facility] Ferritin < 10.0 ng/mL Low 11- 307 finding [phone] Laboratory test 04/11/2015 [facility] Hepatitis C Nonreactive Nonreactive finding [phone] Antibody Basic Metabolic 04/11/2015 [facility] Sodium 137 mmol/L 133-145 Panel [phone] Potassium 4.1 mmol/L 3.5-5.0 Chloride 107 mmol/L 101-111 Co2 Carbon Dioxide 24 mmol/L 22-32 Anion Gap 6 mmol/L 2-11 Glucose 75 mg/dL 70-100 Blood Urea Nitrogen 9 mg/dL 6-24 Creatinine 0.66 mg/dL 0.51-0.95 BUN/Creatinine Ratio 13.6 8-20 Calcium 8.8 mg/dL 8.6-10.3 Egfr Non- 94.8 >60 Egfr 121.9 >60 32 CBC Auto Diff 04/11/2015 [facility] White Blood Count 6.0 10^3/uL 4.8-10.8 [phone] Red Blood Count 4.16 10^6/uL 4.0-5.4 Hemoglobin 9.5 g/dL Low 12.0-16.0 Hematocrit 31 % Low 35-47 Mean Corpuscular Volume 75 fL Low 80-97 Mean Corpuscular Hemoglobin 23 pg Low 27-31 Mean Corpuscular HGB Conc 30 g/dL Low 31-36 Red Cell Distribution Width 20 % High 10.5-15 Platelet Count 268 10^3/uL 150-450 Mean Platelet Volume 8 um3 7.4-10.4 Abs Neutrophils 4.4 10^3/uL 1.5-7.7 Abs Lymphocytes 1.1 10^3/uL 1.0-4.8 Abs Monocytes 0.3 10^3/uL 0-0.8 Abs Eosinophils 0.1 10^3/uL 0-0.6 Abs Basophils 0 10^3/uL 0-0.2 Abs Nucleated RBC 0 10^3/uL Granulocyte % 73.4 % 38-83 Lymphocyte % 17.8 % Low 25-47 Monocyte % 5.7 % 1-9 Eosinophil % 2.4 % 0-6 Basophil % 0.7 % 0-2 Nucleated Red Blood Cells % 0.1 Laboratory test 06/27/2013 [facility] Blood Urea 5 mg/dL Low 6-24 finding [phone] Nitrogen Creatinine 06/27/2013 [facility] Creatinine 0.70 mg/dL 0.50-1.40 [phone] Egfr Non- 89.3 >60 Egfr 114.9 >60 33 Laboratory test 06/27/2013 [facility] TSH (Thyroid 1.03 miu/mL 0.34- 5.60 finding [phone] Stimulating Horm) [place] 0.8 mmol/L 0.5-1.5 Laboratory test finding 11/04/2008 [facility] [place] 0.3 mmol/L Low 0.5-1.5 [phone] BUN 7 mg/dL 6-24 TSH 1.30 MIU/ML 0.34-5.60 CBC With Electronic 06/21/2007 [facility] White Blood 9.2 CUMM 4.8- 10.8 34 Diff [phone] Count Abs Basophils 0 0-0.2 Abs Eosinophils 0.1 0-0.6 Absolute Neutrophil Count 6.7 1.5-7.7 Abs Lymphs 1.8 1.0-4.8 Abs Mononuclear 0.6 0-0.8 Basophil % 0.2 % 0-2 Hematocrit 41 % 35-47 35 Hemoglobin 13.8 g/dL 12.0-16.0 Eosinophil % 1.4 % 0-6 Gran % 72.2 % 38-83 Lymph % 19.4 % Low 20-45 Mean Corpuscular HGB Cone 34 g/dL 32-36 Mean Corpuscular Hemoglob 29 pg 27-31 Mean Corpuscular Volume 86 um3 79-97 Mean Platelet Volume 9.2 um3 7.4-10.4 Mononuclear % 6.8 % 1-9 Platelet Count 335 CUMM 150-450 Red Cell Count 4.78 CUMM 4.2-5.4 Redcell Distribution WDTH 15 % 10.5-15 1 Because ethnic data is not always readily available, this report includes an eGFR for both -Americans and non- Americans. The National Kidney Disease Education Program (NKDEP) does not endorse the use of the MDRD equation for patients that are not between the ages of 18 and 70, are , have extremes of body size, muscle mass, or nutritional status, or are non- or non-. According to the National Kidney Foundation, irrespective of diagnosis, the stage of the disease is based on the level of kidney function: Stage Description GFR(mL/min/1.73 m(2)) 1 Kidney damage with normal or decreased GFR 90 2 Kidney damage with mild decrease in GFR 60-89 3 Moderate decrease in GFR 30-59 4 Severe decrease in GFR 15-29 5 Kidney failure <15 (or dialysis) 2 Therapeutic target for the treatment of diabetes mellitus patients is <7% HBA1C, and in selective patients <6.0%. Please refer to [place] Diabetes Association diabetic care guidelines for further information. 3 Test Performed by: [facility] [employer] [place] [id number] 4 REFERENCE VALUE 20.0 - 51.0 Test Performed by: [facility] [address] [id number] 5 ADDITIONAL INFORMATION This test was developed and its performance characteristics determined by [facility] in a manner consistent with CLIA requirements. This test has not been cleared or approved by the U.S. Food and Drug Administration. Test Performed by: [facility] [employer] [address] [place] [id number] 6 ADDITIONAL INFORMATION This test was developed and its performance characteristics determined by [facility] in a manner consistent with CLIA requirements. This test has not been cleared or approved by the U.S. Food and Drug Administration. Test Performed by: [facility] [employer] [place] [id number] 7 ADDITIONAL INFORMATION This test was developed and its performance characteristics determined by [facility] in a manner consistent with CLIA requirements. This test has not been cleared or approved by the U.S. Food and Drug Administration. Test Performed by: [facility] [address] [facility], [place] [address] 8 Desirable: <150 Borderline High: 150-199 High: 200-499 Very High: >500 9 Desirable: <200 Borderline High: 200-239 High: >239 10 Low: <40 Desirable: 40-60 High: >60 11 Desirable: <100 Near Optimal: 100-129 Borderline High: 130-159 High: 160-189 Very High: >189 12 Because ethnic data is not always readily available, this report includes an eGFR for both -Americans and non- Americans. The National Kidney Disease Education Program (NKDEP) does not endorse the use of the MDRD equation for patients that are not between the ages of 18 and 70, are , have extremes of body size, muscle mass, or nutritional status, or are non- or non-. According to the National Kidney Foundation, irrespective of diagnosis, the stage of the disease is based on the level of kidney function: Stage Description GFR(mL/min/1.73 m(2)) 1 Kidney damage with normal or decreased GFR 90 2 Kidney damage with mild decrease in GFR 60-89 3 Moderate decrease in GFR 30-59 4 Severe decrease in GFR 15-29 5 Kidney failure <15 (or dialysis) 13 Desirable <150 Borderline high 150-199 High 200-499 Very High >500 14 Desirable <200 Borderline high 200-239 High >239 15 Low <40 Desirable: 40-60 High: >60 16 Desirable: <100 mg/dL Near Optimal: 100-129 mg/dL Borderline High: 130-159 mg/dL High: 160-189 mg/dL Very High: >189 mg/dL 17 Therapeutic target for the treatment of diabetes Mellitus patients is <7% HBA1C, and in selective patients <6.0%.Please refer to [place] Diabetes Association Diabetic care guidelines for further information. 18 [id number] 19 SEE RESULT BELOW Name: TANMAY ISSA : [address]: Duane Dudley MD Acct: [id number] Unit: [id number] AGE: 51 Location: [facility] Re08/25/16 SEX: F Status: DEP ER SPEC: [id number] TALHA: 08/25/[address] [facility] [address]: Duane Dudley MD REQ: [id number] RECD: 08/25/16 STATUS: RES OTHR DR: Amanda RENEC _ SOURCE: STARLA MORENO SPDESC: ORDERED: Culture Stain COMMENTS: [id number] Procedure Result Reported Site Wound/Misc Gram Stain Preliminary 08/25/16- 1920 ML 4+ Neutrophils 4+ Gram Positive Cocci Wound/Misc Culture PENDING * ML - MAIN LAB ([facility]) . END OF REPORT * ML=Testing performed at Main Lab DEPARTMENT OF PATHOLOGY, [address] [place] [address] Chandrakant Benitez M.D. Director [facility] # [id number] 20 SEE RESULT BELOW Name: TANAMY ISSA : [address]: Duane Dudley MD Acct: [id number] Unit: [id number] AGE: 51 Location: [facility] Re08/25/16 SEX: F Status: DEP ER SPEC: [id number] TALHA: 08/25/[address] [facility] [address]: Duane Dudley MD REQ: [id number] RECD: 08/25/16 STATUS: VALENTINA MONET DR: Amanda Elmore RPA-C _ SOURCE: STARLA MORENO SPDESC: ORDERED: MRSA/SA SSTI, Culture Stain COMMENTS: [id number] Procedure Result Reported Site MRSA/S. aureus SSTI PCR Final 08/25/16- 2030 ML Organism 1 MRSA NEGATIVE Organism 2 S.AUREUS NEGATIVE Wound/Misc Gram Stain Final 08/26/16- 1457 ML 4+ Neutrophils 3+ Gram Positive Cocci 1+ Gram Positive Bacilli Wound/Misc Culture Final 08/27/16- 1250 ML No Growth Day 2 * ML - MAIN LAB ([facility]) . END OF REPORT * ML=Testing performed at Main Lab DEPARTMENT OF PATHOLOGY, [address] [place] [address] Chandrakant Benitez M.D. Director [facility] # [id number] 21 Pt called wondering about results, told her they were not complete but that the mono test was negative. SL 22 Because ethnic data is not always readily available, this report includes an eGFR for both -Americans and non- Americans. The National Kidney Disease Education Program (NKDEP) does not endorse the use of the MDRD equation for patients that are not between the ages of 18 and 70, are , have extremes of body size, muscle mass, or nutritional status, or are non- or non-. According to the National Kidney Foundation, irrespective of diagnosis, the stage of the disease is based on the level of kidney function: Stage Description GFR(mL/min/1.73 m(2)) 1 Kidney damage with normal or decreased GFR 90 2 Kidney damage with mild decrease in GFR 60-89 3 Moderate decrease in GFR 30-59 4 Severe decrease in GFR 15-29 5 Kidney failure <15 (or dialysis) 23 Test Performed by: [place] [address] [employer] Operator: Jonathan Pan II, M.D., Ph.D. 24 Because ethnic data is not always readily available, this report includes an eGFR for both -Americans and non- Americans. The National Kidney Disease Education Program (NKDEP) does not endorse the use of the MDRD equation for patients that are not between the ages of 18 and 70, are , have extremes of body size, muscle mass, or nutritional status, or are non- or non-. According to the National Kidney Foundation, irrespective of diagnosis, the stage of the disease is based on the level of kidney function: Stage Description GFR(mL/min/1.73 m(2)) 1 Kidney damage with normal or decreased GFR 90 2 Kidney damage with mild decrease in GFR 60-89 3 Moderate decrease in GFR 30-59 4 Severe decrease in GFR 15-29 5 Kidney failure <15 (or dialysis) 25 Normal Range 180 to 914 Indeterminate Range 145 to 180 Deficient Range <145 26 Acute inflammation: >10.00 27 It is recognized that currently available assays for the detection of antibodies to HIV-1 and/or HIV-2 may not detect all infected individuals. HIV antibodies may be undetectable in some stages of the infection and in some clinical conditions. The performance of this assay has not been established for populations of infants or children. Assayed by Chemiluminescence Microparticle Immunoassay on the Siemens Advia Centaur CP. Values obtained with different methods or kits cannot be used interchangeably.The diagnostic specificity of the ADVIA Centaur 1/O/2 Enhanced assay in the low risk population was 99.90% (6052/6058) with a 95% confidence interval of 99.78 to 99.96%. [address] Lozano, provider #99-had to change provider names bc [facility] nurses are "99" and computer was confused. SL 29 SEE RESULT BELOW Name: TANMAY ISSA : [address]: Cam Lozano MD Acct: [id number] Unit: [id number] AGE: 49 Location: [facility] Re05/22/15 SEX: F Status: REG REF SPEC: [id number] TALHA: 05/22/15-[address] [facility] [address]: Cam Lozano MD REQ: [id number] RECD: 05/22/15-3788 STATUS: LINOWOD MARTÍNEZ DR: Juan F Roper DO _ ORDERED: LEVEL IV/2 FINAL DIAGNOSIS 1. Duodenum, biopsy: -- Benign duodenal mucosa with no significant pathologic abnormalities. -- No evidence of villous blunting or increased intraepithelial lymphocytes. 2. Stomach, body, biopsy: -- Body-type gastric mucosa with iron pill gastropathy; see comment. COMMENT: Histologic sections from specimen 2 show body-type gastric mucosa with superficial deposition of birch-brown, pigmented, crystalline material, compatible with ingested iron, and associated reactive foveolar hyperplasia. CLINICAL HISTORY Anemia, history of gastroesophageal reflux disease POST-OPERATIVE DIAGNOSIS Body of esophagus - negative; GE junction - normal, no hiatal hernia; stomach - patchy gastritis body, biopsied, CLOtest antrum; pylorus and duodenum - negative - biopsied x2 bulb and 2nd portion x4 for celiac. No active gastroesophageal reflux disease, non-diagnostic GROSS DESCRIPTION 1. The specimen is received in formalin labeled, Duodenal Biopsies, and consists of a 1.0 x 1.0 x 0.2 cm aggregate of portillo-white irregular to polypoid soft tissue fragments, which is entirely submitted in one cassette. 2. The specimen is received in formalin labeled, Gastric Body Biopsies, and consists of a 1.1 x 0.5 x 0.2 cm aggregate of portillo-white irregular soft tissue fragments, which is entirely submitted in one cassette. CONTINUED ON NEXT PAGE * ML=Testing performed at Main Lab DEPARTMENT OF PATHOLOGY, [address] [place] [address] Chandrakant Benitez M.D. Director [facility] # [id number] RUN DATE: 05/24/15 [facility] LAB LIVE PAGE 2 Patient: TANMAY ISSA [id number] (Continued) GROSS DESCRIPTION (Continued) Signed (signature on file) Evangelina Johnson MD 12/03 1028 END OF REPORT * ML=Testing performed at Main Lab DEPARTMENT OF PATHOLOGY, [address] [place] [address] Chandrakant Benitez M.D. Director [facility] # [id number] 30 SEE RESULT BELOW Name: TANMAY ISSA : [address]: Cam Lozano MD Acct: [id number] Unit: [id number] AGE: 49 Location: [facility] Re05/22/15 SEX: F Status: REG REF SPEC: [id number] TALHA: 05/22/15-[address] [facility] [address]: Cam Lozano MD REQ: [id number] RECD: 05/22/150336 STATUS: VALENTINA MARTÍNEZ DR: Juan F Roper DO _ SOURCE: GAS ANTRUM SPDESC: ORDERED: Clotest Procedure Result Verified Site Clotest Final 05/23/15- 0750 ML Clotest Negative * ML - MAIN LAB ([facility]) . END OF REPORT * ML=Testing performed at Main Lab DEPARTMENT OF PATHOLOGY, [address] [place] [address] Chandrakant Benitez M.D. Director [facility] # [id number] 31 Consistent with previous results on 05/02/15. 32 Because ethnic data is not always readily available, this report includes an eGFR for both -Americans and non- Americans. The National Kidney Disease Education Program (NKDEP) does not endorse the use of the MDRD equation for patients that are not between the ages of 18 and 70, are , have extremes of body size, muscle mass, or nutritional status, or are non- or non-. According to the National Kidney Foundation, irrespective of diagnosis, the stage of the disease is based on the level of kidney function: Stage Description GFR(mL/min/1.73 m(2)) 1 Kidney damage with normal or decreased GFR 90 2 Kidney damage with mild decrease in GFR 60-89 3 Moderate decrease in GFR 30-59 4 Severe decrease in GFR 15-29 5 Kidney failure <15 (or dialysis) 33 Because ethnic data is not always readily available, this report includes an eGFR for both -Americans and non- Americans. The National Kidney Disease Education Program (NKDEP) does not endorse the use of the MDRD equation for patients that are not between the ages of 18 and 70, are , have extremes of body size, muscle mass, or nutritional status, or are non- or non-. According to the National Kidney Foundation, irrespective of diagnosis, the stage of the disease is based on the level of kidney function: Stage Description GFR(mL/min/1.73 m(2)) 1 Kidney damage with normal or decreased GFR 90 2 Kidney damage with mild decrease in GFR 60-89 3 Moderate decrease in GFR 30-59 4 Severe decrease in GFR 15-29 5 Kidney failure <15 (or dialysis) 34 SURGERY 06/28/07 35 Lymphopenia % Procedures Date Code Description Status 10/22/2016 80381245 Mammogram Completed 06/21/2015 27147447 Colonoscopy Completed 04/03/2014 44488 Omt 7-8 Body Regions Completed 01/26/2014 75254 Omt 3 To 4 Body Regions Involved Completed 12/28/2013 05860 Osteopathic Manipulative Treament 5-6 Body Regions Completed 11/24/2013 10511 Osteopathic Manipulative Treatment 1 Or 2 Body Region Completed 11/14/2013 03131 Osteopathic Manipulative Treatment 1 Or 2 Body Region Completed 04/25/2013 45898 Anoscopy Diagnostic Completed Encounters Type Date Location Provider Dx Diagnosis Office Visit 07/21/2018 Main Office Amanda Elmore PA Z12.4 Encounter for 9:00a screening for malignant neoplasm of cervix Z23 Encounter for immunization L03.311 Cellulitis of abdominal wall F31.81 Bipolar II disorder Office Visit 07/07/2018 11:20a Main Office Amanda Elmore PA F31.81 Bipolar II disorder Z12.31 Encntr screen mammogram for malignant neoplasm of breast M50.122 Cervical disc disorder at C5-C6 level with radiculopathy M54.40 Lumbago with sciatica, unspecified side M72.2 Plantar fascial fibromatosis Office Visit 02/11/2018 10:05a Main Office Amanda Elmore, B08.4 Enteroviral PA vesicular stomatitis with exanthem Office Visit 12/30/2017 3:00p Main Office Amanda Elmore, M50.122 Cervical disc PA disorder at C5-C6 level with radiculopathy F31.81 Bipolar II disorder Office Visit 08/26/2017 11:00a Main Office Amanda Elmore, M54.40 Lumbago with PA sciatica, unspecified side M50.122 Cervical disc disorder at C5-C6 level with radiculopathy F31.81 Bipolar II disorder F17.210 Nicotine dependence, cigarettes, uncomplicated Office Visit 03/11/2017 1:00p Main Office Amanda Elmore, M50.122 Cervical disc PA disorder at C5-C6 level with radiculopathy M54.40 Lumbago with sciatica, unspecified side F31.81 Bipolar II disorder Office Visit 02/23/2017 2:15p Main Office Juan F Roper, F31.81 Bipolar II D.O. disorder M54.40 Lumbago with sciatica, unspecified side M54.13 Radiculopathy, cervicothoracic region Z91.038 Other insect allergy status S70.362D Insect bite (nonvenomous), left thigh, subsequent encounter R21 Rash and other nonspecific skin eruption Office Visit 10/15/2016 9:40a Main Office Amanda Elmore PA Z00.01 Encounter for general adult medical exam w abnormal findings F31.81 Bipolar II disorder M54.40 Lumbago with sciatica, unspecified side M54.13 Radiculopathy, cervicothoracic region Office Visit 08/20/2016 10:40a Main Office Amanda Elmore PA F31.81 Bipolar II disorder M54.40 Lumbago with sciatica, unspecified side M54.13 Radiculopathy, cervicothoracic region L02.411 Cutaneous abscess of right axilla R04.0 Epistaxis K64.8 Other hemorrhoids Z23 Encounter for immunization Z41.8 Encntr for oth proc [facility] Office Visit 06/25/2016 2:40p Main Office Amanda Elmore PA R53.83 Other fatigue M54.5 Low back pain Office Visit 10/10/2015 2:00p Main Office Juan F Roper, F31.81 Bipolar II D.O. disorder K21.9 Gastro-esophageal reflux disease without esophagitis E55.9 Vitamin D deficiency, unspecified L40.0 Psoriasis vulgaris M54.2 Cervicalgia D50.9 Iron deficiency anemia, unspecified Z12.31 Encntr screen mammogram for malignant neoplasm of breast Z00.01 Encounter for general adult medical exam w abnormal findings Z23 Encounter for immunization M54.5 Low back pain Office Visit 05/21/2015 8:55a Main Office Juan F Roper, 530.81 Esophageal Reflux D.O. 268.9 Vitamin D Deficiency Unspec 696.1 Psoriasis Other 723.1 Cervicalgia 280.9 Iron Deficiency Anemia Unspec Office Visit 04/18/2015 4:00p Main Office Juan F Roper, 280.9 Iron Deficiency D.O. Anemia Unspec 530.81 Esophageal Reflux 268.9 Vitamin D Deficiency Unspec 696.1 Psoriasis Other Office Visit 04/11/2015 1:15p Main Office Juan F Roper, 268.9 Vitamin D D.O. Deficiency Unspec 696.1 Psoriasis Other 530.81 Esophageal Reflux V15.06 [place]y To Insects And Arachnids V70.0 Examination General Medical Routine AT Health Care Facility Office Visit 07/17/2014 11:30a Main Office Juan F Roper, 704.8 Hair & Hair D.O. Follicle Diseases Other Spec 723.1 Cervicalgia 723.4 Brachial Neuritis Or Radiculitis NOS Office Visit 04/03/2014 9:45a Main Office Juan F Roper, D.O. 723.1 Cervicalgia 723.4 Brachial Neuritis Or Radiculitis NOS 739.1 Lesion Nonallopathic Cervical Region Not Elsewhere Class 739.2 Lesion Nonallopathic Thoracic Region Not Elsewhere Class 739.0 Lesion Nonallopathic Head Region Not Elsewhere Class 739.8 Lesion Nonallopathic Rib Cage Not Elsewhere Class 739.3 Lesion Nonallopathic Lumbar Region Not Elsewhere Class 739.5 Lesion Nonallopathic Pelvic Region Not Elsewhere Class 739.4 Lesion Nonallopathic Sacral Region Not Elsewhere Class 724.2 Lumbago Office Visit 01/26/2014 4:15p Main Office Juan F Roper, V68.1 Prescriptions Repeat D.O. Issue 723.1 Cervicalgia 723.4 Brachial Neuritis Or Radiculitis NOS V15.06 [place] To Insects And Arachnids 739.1 Lesion Nonallopathic Cervical Region Not Elsewhere Class 739.2 Lesion Nonallopathic Thoracic Region Not Elsewhere Class 739.0 Lesion Nonallopathic Head Region Not Elsewhere Class 739.8 Lesion Nonallopathic Rib Cage Not Elsewhere Class Office Visit 12/28/2013 1:30p Main Office Juan F Roper, 850.9 Concussion Unspec D.O. 784.0 Headache 723.1 Cervicalgia 723.4 Brachial Neuritis Or Radiculitis NOS 739.0 Lesion Nonallopathic Head Region Not Elsewhere Class 739.1 Lesion Nonallopathic Cervical Region Not Elsewhere Class 739.2 Lesion Nonallopathic Thoracic Region Not Elsewhere Class 739.8 Lesion Nonallopathic Rib Cage Not Elsewhere Class 739.7 Lesion Nonallopathic Upper Extremity Not Elsewhere Class 728.9 Muscle Disorders Unspec 782.0 Skin Sensation Disturbance Office Visit 11/24/2013 2:30p Main Office Juan F Roper, 850.9 Concussion Unspec D.O. 784.0 Headache E917.4 Other Stationary Object Without Subsequent Fall E849.0 Accident Home 739.0 Lesion Nonallopathic Head Region Not Elsewhere Class Office Visit 11/14/2013 9:15a Main Office Juan F Roper D.O. 723.1 Cervicalgia 723.4 Brachial Neuritis Or Radiculitis NOS 739.2 Lesion Nonallopathic Thoracic Region Not Elsewhere Class 739.8 Lesion Nonallopathic Rib Cage Not Elsewhere Class 728.9 Muscle Disorders Unspec Office Visit 10/10/2013 11:15a Main Office Juan F Roper D.O. 723.1 Cervicalgia 723.4 Brachial Neuritis Or Radiculitis NOS 782.0 Skin Sensation Disturbance Office Visit 09/19/2013 2:30p Main Office Juan F Roper D.OMyra 723.1 Cervicalgia 723.4 Brachial Neuritis Or Radiculitis NOS V76.19 Screening Breast Exam Malignant Neoplasms Other 782.0 Skin Sensation Disturbance Office Visit 04/25/2013 11:15a Main Office Juan F Roper, 455.0 Hemorrhoids Internal D.O. W/O Complication 564.01 Constipation Slow Transit Office Visit 09/22/2012 2:15p Main Office Bradley Calero, 724.5 Backache Unspec M.D. 296.89 Bipolar Disorder NEC 368.9 Visual Disturbances Unspec Office Visit 09/10/2011 11:15a Main Office Bradley Calero, 724.5 Backache Unspec M.D. 296.89 Bipolar Disorder NEC V76.10 Screening For Malignant Neoplasm Breast 698.9 Pruritic Disorder Unspec Office Visit 05/31/2011 9:30a Main Office Bradley Calero 724.5 Backache Unspec M.D. 296.89 Bipolar Disorder NEC 709.09 Dyschromia Other 455.5 Hemorrhoids External W/ Other Complications v06.1 Mttzpdddts-Hclgjlk-Ehjgodai Combined (DTaP) v04.81 Need For Prophylactic Vaccination & Inoculation/Influenza v07.2 Prophylactic Immunotherapy Office Visit 05/10/2010 8:55a Main Office Bradley Calero, 724.5 Backache Unspec M.D. 530.81 Esophageal Reflux 296.89 Bipolar Disorder NEC 783.21 Loss Of Weight Office Visit 01/29/2010 3:30p Main Office Bradley Calero 724.5 Backache Unspec M.D. 724.2 Lumbago 296.89 Bipolar Disorder NEC 530.81 Esophageal Reflux Office Visit 05/08/2009 2:45p Main Office Bradley Calero M.D. 724.2 Lumbago 296.89 Bipolar Disorder NEC 530.81 Esophageal Reflux 787.02 Nausea Alone Office Visit 11/07/2008 9:45a Main Office Bradley Calero, 682.0 Cellulitis & M.D. Abscess Face 724.5 Backache Unspec 461.0 Sinusitis Acute Maxillary 724.2 Lumbago 296.89 Bipolar Disorder NEC 530.81 Esophageal Reflux 787.02 Nausea Alone Office Visit 11/01/2008 3:00p Main Office Bradley Calero, 682.0 Cellulitis & M.D. Abscess Face 461.0 Sinusitis Acute Maxillary Office Visit 05/24/2008 9:30a Main Office Silcoff, Bradley, 724.5 Backache Unspec M.D. 724.2 Lumbago 728.85 Spasm Muscle 665.64 Pelvic Joints & Ligaments Damage Cond Or Comp 296.89 Bipolar Disorder NEC 787.02 Nausea Alone 236.1 Neoplasm Uncertain Placenta Office Visit 03/13/2008 11:00a Main Office Bradley Calero, 724.5 Backache Unspec M.D. 724.2 Lumbago 728.85 Spasm Muscle 665.64 Pelvic Joints & Ligaments Damage Cond Or Comp 296.89 Bipolar Disorder NEC Office Visit 01/12/2008 1:30p Main Office Bradley Calero, 724.5 Backache Unspec M.D. 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 724.2 Lumbago 728.85 Spasm Muscle 665.64 Pelvic Joints & Ligaments Damage Cond Or Comp Office Visit 12/14/2007 11:15a Main Office Bradley Calero, 665.64 Pelvic Joints & M.D. Ligaments Damage Cond Or Comp 724.5 Backache Unspec 724.2 Lumbago 728.85 Spasm Muscle 296.89 Bipolar Disorder NEC Office Visit 11/09/2007 2:00p Main Office Bradley Calero, 665.64 Pelvic Joints & M.D. Ligaments Damage Cond Or Comp 724.5 Backache Unspec 296.89 Bipolar Disorder NEC 924.5 Contusion Lower Limb Part Unspec Office Visit 10/08/2007 11:30a Main Office klepack 296.89 Bipolar Disorder NEC 724.2 Lumbago Office Visit 07/19/2007 11:10a Main Office [facility] 296.89 Bipolar Disorder NEC Office Visit 05/20/2007 9:20a Main Office kle[facility] 724.2 Lumbago Office Visit 04/09/2007 3:00p Main Office [facility] 724.2 Lumbago Office Visit 03/15/2007 2:00p Main Office klepack 665.64 Pelvic Joints & Ligaments Damage Cond Or Comp 989.5 Toxic Effect Of Venom 455.5 Hemorrhoids External W/ Other Complications Plan of Treatment 07/07/2018 - Amanda Elmore, PAF31.81 Bipolar II disorderComments:Seeing psychiatrist and counselor at [facility]. Doing well on current meds. Will check labs.Z12.31 Encounter for screening mammogram for malignant neoplasm ofNew Xrays :Mammography, Screening, Bilateral, Scheduled: 07/16/18Comments:Mammogram due-- ordered.Follow up:schedule PAP and flu shotM50.122 Cervical disc disorder at C5- C6 level with radiculopathyComments:Seeing Dr. Cuellar at pain clinic. Monitor.M54.40 Lumbago with sciatica, unspecified sideM72.2 Plantar fascial fibromatosisComments:Discussed stretching exercises for plantar fasciitis. If not improving, consider foot Xray to r/o heel spurs.
[2018-08-20 09:17] VITALS: BP 109/67
--- NOTE | 2018-08-20 10:03 | UC ---
Skin Complaint HPI - HPI Summary HPI Summary: Pt presents to with progressive rash. Pt states approx 3 weeks ago was stacking wood. Pt developed a rash on her abdomen. Pt states she was evaluated at PCP and started on keflex. Pt states rash got better until 2 days ago. Pt states noted increased reddness in same area. No itching. no fever, chills No streaking. mild fatigue. Pt states today she thought appeared like a "bullseye" so came to as concerned for tick bite. Pt did not see a tick or other insect. Pt states her skin is very sensitive. Pt denies n/v/d. No cp, sob, abd pain. No madrigal, vision changes. Pt not immunocompromised pt's medications reviewed this visit - History of Current Complaint Chief Complaint: Rash Time Seen by Provider: 08/20/18 09:53 Stated Complaint: RASH Hx Obtained From: Patient Hx Last Menstrual Period: 2 weeks ago Pain Intensity: 4 - Allergy/Home Medications Allergies/Adverse Reactions: Allergies Allergy/AdvReac Type Severity Reaction Status Date / Time bee venom protein (honey bee) Allergy Anaphylatic Verified 08/20/18 09:17 Shock latex Allergy Rash Verified 08/20/18 09:17 Review of Systems All Other Systems Reviewed And Are Negative: Yes Constitutional: Positive: Fatigue. Negative: Fever, Chills Skin: Positive: Other - erythema lower abdomen ENT: Positive: Negative PMH/Surg Hx/FS Hx/Imm Hx Previously Healthy: Yes - Surgical History Surgical History: Yes Surgery Procedure, Year, and Place: TONSILLECTOMY; - Family History Known Family History: Positive: Hypertension, Non-Contributory Negative: Cardiac Disease, Diabetes Family History: lung cancer - Social History Lives: With Family Alcohol Use: Occasionally Substance Use Type: None Smoking Status (MU): Former Smoker Type: Cigarettes Amount Used/How Often: 1 pack per week Have You Smoked in the Last Year: No When Did the Patient Quit Smoking/Using Tobacco: 20+ years Household Exposure Type: Cigarettes - Immunization History Most Recent Tetanus Shot: UNSURE Physical Exam - Summary Physical Exam Summary: Vital Signs Reviewed: Yes A+Ox3, no distress Eyes: Conjunctiva Clear, TOMA. EOM intact and full ENT: Hearing grossly normal TM x 2 clear, mmoist, uvula midline, no exudate, no erythema Neck: Positive: Supple Respiratory: Positive: No respiratory distress, No accessory muscle use + CTA throughout no w/r Cardiovascular: RRR nl s1, s2 no m/r CBT <2 sec abd soft + BS nt/nd no guarding, no distension Musculoskeletal Exam: FERRELL x 4 without difficulty Strength Intact, ROM Intact Neurological: Positive: Alert, + sensation throughout Psychological: Positive: Normal Response To Family Skin: Positive: lower abdomen pt with 4x5cm area of erythea, warnth. demarcated. no fluctunce. small area of induration center of erythema. no drainage, abraison Triage Information Reviewed: Yes Vital Signs: Initial Vital Signs Temp 98.3 F 08/20/18 09:12 Pulse 69 08/20/18 09:12 Resp 18 08/20/18 09:12 BP 109/67 08/20/18 09:12 Pulse Ox 100 08/20/18 09:12 Course/Dx - Course Course Of Treatment: Pt with erythema lower abdomen c/w cellulitis. Pt with recent treatment with keflex - completed approximately 2 weeks ago. Pt states was doing well until 2 days ago noted increased reddness. Pt reports mild discomfort. Pt concerned it is a bullseye rash - concerne for lymes because fatigue. Pt VSS. Pt with are of erythema on lower central abdomen concerning for cellitis. no bulls eye appearance. No fever, myalgia. Pt with recent tx with keflex. Will check cbc/cmp/lyme. start doxy. PCP recheck thursday. strict return precautions. Pt comfortable and in agreement with plan - Diagnoses Provider Diagnosis: Cellulitis Discharge - Sign-Out/Discharge Documenting (check all that apply): Patient Departure All imaging exams completed and their final reports reviewed: No Studies - Discharge Plan Condition: Stable Disposition: HOME Prescriptions: DOXYcycline CAP(*) [DOXYcycline 100MG CAP(*)] 100 mg PO BID #28 cap Patient Education Materials: Cellulitis (ED) Referrals: Amanda Friedman [Primary Care Provider] - (Call today for a re-check appointment on Thursday) Additional Instructions: - STay well hydrated Drink plenty of non-alcoholic, non-caffinated beverages - Take antibiotics as prescribed until gone - If you develop fevers, vomiting, increased reddness, red streaking, pain or ANY other concerns it is recommended you go immediately to the hospital for further evaluation and testing - Okay to take Tylenol every 6 hours for discomfort - Contact your primary care provider today to schedule a re check appointment on Thursday - Billing Disposition and Condition Condition: STABLE Disposition: Home
[2018-08-20 12:31] LABS: ABS Basophils 0 10^3/ul (0-0.2); ABS Eosinophils 0.2 10^3/ul (0-0.6); ABS Monocytes 0.3 10^3/ul (0-0.8); ABS Nucleated RBC 0 10^3/ul; Eosinophil % 3.1 %; Hematocrit 44 % (35-47); Hemoglobin 14.5 g/dl (12.0-16.0); Lymphocyte % 15.1 %; Mean Corpuscular HGB Conc 33 g/dl (31-36); Mean Corpuscular Hemoglobin 31 pg (27-31); Mean Corpuscular Volume 94 fL (80-97); Nucleated Red Blood Cells % 0; Platelet Count 229 10^3/ul (150-450); Red Blood Count 4.67 10^6/ul (4.00-5.40); Red Cell Distribution Width 13 % (10.5-15); White Blood Count 6.5 10^3/ul (3.5-10.8)
[2018-08-20 12:40] LABS: EGFR Non-African American 91.7 (>60)
== END 2018-08-20 10:30 | disposition home or self-care (01) ==
LOC: UCEAST 09:07
DX: L03.311 Cellulitis of abdominal wall (principal); Z91.030 Bee allergy status; Z91.040 Latex allergy status; Z87.891 Personal history of nicotine dependence
CPT/HCPCS: 36415; 80048; 85025; 86617; 86618; 99212; G0463

== ENCOUNTER 2018-09-06 10:17 | Emergency (ER) | payer MEDICARE, MEDICAID ==
--- OUTSIDE RECORDS SUMMARY | 2018-09-06 10:26 | XMS REPORT | Continuity of Care Document ---
:1965 External Reference #:[id number] Author Name Bradley Calero M.D. 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) [...] Form Strength Qnty SIG Indications Ordering Provider Doxycycline 08/20/ Active Capsules 100mg take 1 Unknown Hyclate 2018 capsule by mouth twice a day Abilify 06/30/ Active Tablets 10mg take one Silcoff, 2018 tablet by jing Huerta M.DMyra every day for mood Lipoic Acid 12/29/ Active daily Unknown 2018 Zinc 12/29/ Active 1 daily Unknown 2017 Alpha Betic 02/22/ Active Capsules 200mg as Unknown 2017 directed Hydrocortisone 02/19/ Active Cream 1% Apply To Unknown 2017 Affected Area S Three Times A Day Ferrous Sulfate / Active Tablets 325(65Fe) 180tab take 1 [place], 2016 mg s tablet by Juan F, mouth two D.O. times daily Vitamin D3 04/11/ Active Capsules 5000Unit 90caps take one E55.9 [place], 2014 capsule Juan F, by mouth D.O. every day or 7 tablets once a week Epipen 2-Karl 04/11/ Active Solution 0.3mg/0.3M 2units use as T63.94xA Abdias 2014 Auto-Injec sheela Narvaez for M.D. insect sting causing swelling of throat or severe reaction, then go to hospital. Z91.030 Calcipotriene 04/11/2015 Active Cream 0.005% 60units Apply To L40.0 [place], Affected Juan F, Area(S) Two D.O. Times Daily For Relief Of Psoriasis Omeprazole 10/04/[address] 20mg 90caps take 1 R11.0 [place], capsule by Juan F, mouth once D.O. daily K21.9 [place] Carbonate 07/06/2012 Active Tablets 150mg 5 po qhs F31.81 Unknown Diazepam 10/18/2007 Active Tablets 5mg 60tabs 1/2-1 PO bid F31.81 Unknown For Anxiety prn F41.9 M62.838 Keflex Hx Capsules 500mg 30caps 1 tab by mouth L03.311 Charlie Calero - three times a Laura Huerta day x10 days 018 Abilify Hx Tablets 5mg 30tabs 1/2 tab qhs Unknown 018 - 018 Hydroxyzine Hx Capsules 25mg 90caps take one Z91.038 [place], Pamoate 017 - capsule by Juan F, D.O. [...] ER 10/14/2016 12HR By Mouth Two 4. ANABELL Patel Times Daily as 40 Needed For Spasms [...] spasms Vitamin D 05/21/2015 - Hx Capsules 40943Kt take 1 capsule Judson, (Ergocalciferol) 05/21/2015 it by mouth every Juan F, week D.O. Iron Supplement 04/12/2015 - Hx Tablets 325(65F 180tabs 1 by mouth bid [facility], 06/24/2016 e) mg Juan F, D.O. Vitamin D 04/10/2015 - Hx Tablets daily Unknown 05/21/2015 Benzoyl 07/17/2014 - Hx Gel 5-3% 46.600gm apply to skin 70 [facility], Peroxide-Erythromy 10/10/2015 twice a day. 4. Juan F, julieta 8 D.O. Epipen 2-Karl 01/26/2014 - Hx Soaj 0.3mg/0 1units use as 98 [facility], 04/11/2015 .3ML directed for 9. 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 Anusol-HC 04/25/2013 - Hx Cream 2.5% 1units [address] 455[address]0 [facility], 09/19/2013 of rectum Juan F, D.O. every 3 hours Magnesium 04/25/2013 - Hx Powder 1bottl 1 tsp by 564.0 [facility], Citrate 09/19/2013 e mouth every 1 Juan F, D.O. day titrate to daily soft stool Lidocaine 04/25/2013 - Hx Cream 3% 1units [address] 455.0 [facility], 04/26/2013 of rectum Juan F, D.O. four times a day as needed Celebrex 09/07/2012 - Hx Capsules 200mg 90caps Take 1 M54.8 [facility], 02/23/2017 Capsule By 9 Juan F, D.O. Mouth One Time Daily O71.6 M54.2 Tizanidine HCL 09/07/2012 - Hx Tablets 4mg 90tabs Take 1/2 To M54.89 [facility], 03/10/2017 1 Tablet By Juan F, D.O. Mouth One Time Daily as Needed -- Maximum Dose Of 1 Per Day M62.40 M54.2 Abilify 08/25/2012 - Hx Tablets 5mg 1 po every day 296.89 Unknown 01/21/2013 Gabapentin 06/21/2012 - Hx Capsules 100mg 1-2 capsules po F31.81 [facility], 02/23/2017 up to 3 times a Juan [...] 1 po qd 296. Unknown 01/28/2010 89 [place] Carbonate 11/01/2008 - Hx Tablets 300mg 1 [...] One 787. Abdias, 10/04/2012 ps Capsule By Joaquim Huerta Mouth Every M.D. Day For Acid Reflux 530.81 Zanaflex 01/12/2008 - Hx Capsules 4mg 1/2-1 PO qd 728.85 Daniel Klein DO 01/29/2010 724.2 724.5 Flexeril 04/09/2007 - Hx Tablets 10mg 30tabs 1 po tid 724.2 klepack 05/20/2007 do not operate heavy equipment while on meds Physical 04/09/2007 - Hx functional 724.2 klepack Therapy 11/09/2007 capacity exam. Physical 03/15/2007 - Hx for low back and 665.64 [place], Therapy 05/10/2010 pelvic pain post Bradley, M.DMyra Epipen 2-Karl 03/15/2007 - Hx Device 1:1000 1units use as directed 989.5 Abdias, 01/26/2014 for anaphylactic Bradley reactions to bee M.D. stings Immunizations CPT Code Status Date Vaccine Lot # [id number] Given 07/21/2018 Influenza Virus Vaccine, Quadrivalent, Split, [id number] Preservative Free 05945 Given 08/20/2016 Influenza Virus Vaccine, Quadrivalent, Split, [id number] Preservative Free 87701 Given 10/10/2015 Influenza Virus Vaccine, Quadrivalent, Split, [id number] Preservative Free 05890 Given 05/31/2011 Adacel or Boostrix, TDaP [id number] 34372 Given 05/31/2011 Flu, Split Virus 3Yrs [id number] 06075 Given 03/21/2006 Flu, Split Virus 3Yrs 24838 Given 09/14/2005 Td Immunization Vital Signs Date Vital Result Comment 08/23/2018 10:15am BP Systolic 110 mmHg BP Diastolic 72 mmHg Weight 170.00 lb with boots 07/21/2018 9:08am BP Systolic 114 mmHg BP [...] Date Facility Test Result H/L Range Note Basic Metabolic Panel 08/20/2018 [facility] Sodium 140 mmol/L N 135- 145 7 [phone] Potassium 4.1 mmol/L N 3.5-5.0 Chloride 110 mmol/L N 101-111 Co2 Carbon Dioxide 25 mmol/L N 22-32 Anion Gap 5 mmol/L N 2-11 Calcium 9.3 mg/dL N 8.6-10.3 Glucose 86 mg/dL N 70-100 Blood Urea Nitrogen 10 mg/dL N 6-24 Creatinine 0.67 mg/dL N 0.51-0.95 BUN/Creatinine Ratio 14.9 N 8-20 Egfr Non- 91.7 >60 Egfr 111.0 >60 2 CBC Auto Diff 08/20/2018 [facility] White Blood Count 6.5 10^3/uL N 3.5-10.8 [phone] Red Blood Count 4.67 10^6/uL N 4.00-5.40 Hemoglobin 14.5 g/dL N 12.0-16.0 Hematocrit 44 % N 35-47 Mean Corpuscular Volume 94 fL N 80-97 Mean Corpuscular Hemoglobin 31 pg N 27-31 Mean Corpuscular HGB Conc 33 g/dL N 31-36 Red Cell Distribution Width 13 % N 10.5-15 Platelet Count 229 10^3/uL N 150-450 Mean Platelet Volume 9.0 fL N 7.4-10.4 Abs Neutrophils 5.0 10^3/uL N 1.5-7.7 Abs Lymphocytes 1.0 10^3/uL N 1.0-4.8 Abs Monocytes 0.3 10^3/uL N 0-0.8 Abs Eosinophils 0.2 10^3/uL N 0-0.6 Abs Basophils 0 10^3/uL N 0-0.2 Abs Nucleated RBC 0 10^3/uL Granulocyte % 77.3 % Lymphocyte % 15.1 % Monocyte % 4.2 % Eosinophil % 3.1 % Basophil % 0.3 % Nucleated Red Blood Cells % 0 Laboratory test 08/20/2018 [facility] Lyme Disease Positive Negative 3 finding [phone] Serology Laboratory test 07/21/2018 [facility] Cytology SEE RESULT 4 finding [phone] BELOW Laboratory test 07/12/2018 [facility] [place] 0.65 mmol/L N 0.6-1.2 finding [phone] Comp Metabolic 07/12/2018 [facility] Sodium 140 mmol/L N 135-145 Panel [phone] Potassium 4.5 mmol/L N 3.5-5.0 Chloride 109 mmol/L N 101-111 Co2 Carbon Dioxide 27 mmol/L N 22-32 Anion Gap 4 mmol/L N 2-11 Glucose 85 mg/dL N 70-100 Blood Urea Nitrogen 13 mg/dL N 6-24 Creatinine 0.73 mg/dL N 0.51-0.95 BUN/Creatinine Ratio 17.8 N 8-20 Calcium 9.5 mg/dL N 8.6-10.3 Total Protein 6.4 g/dL N 6.4-8.9 Albumin 4.3 g/dL N 3.2-5.2 Globulin 2.1 g/dL N 2-4 Albumin/Globulin Ratio 2.0 N 1-3 Total Bilirubin 0.40 mg/dL N 0.2-1.0 Alkaline Phosphatase 68 U/L N 34-104 Alt 24 U/L N 7-52 Ast 21 U/L N 13-39 Egfr Non- 83.4 >60 Egfr 100.9 >60 5 Laboratory test 12/17/2017 [facility] Hemoglobin A1c 5.0 % N 4.0-5.6 6 finding [phone] (Glyco HGB) Laboratory test 12/17/2017 [facility] [place] 0.87 mmol/L N 0.6-1.2 finding [phone] TSH (Thyroid Stim Horm) 1.30 mcIU/mL N 0.34-5.60 Free T4 (Free Thyroxine) 0.95 ng/dL N 0.61-1.12 T3 Free 3.40 pg/mL N 2.5-3.9 Insulin Level 12.9 mcIU/mL 2.6 - 24.9 7 Ceruloplasmin 28.1 mg/dL 8 Copper, Serum 1.04 g/mL 0.75-1.45 9 Zinc Serum 0.74 g/mL 0.66-1.10 10 T3 Reverse 16 ng/dL 10-24 11 Lipid Profile 12/17/2017 [facility] Triglycerides 109 mg/dL 12 (Trig/Chol/HDL) [phone] Cholesterol 185 mg/dL 13 HDL Cholesterol 44.4 mg/dL 14 LDL Cholesterol 119 mg/dL 15 Creatinine 12/17/2017 [facility] Creatinine 0.74 mg/dL N 0.51-0.95 [phone] Egfr Non- 82.1 >60 Egfr 105.6 >60 16 Laboratory test finding 12/17/2017 [facility] Glucose 94 mg/dL N 70- 100 [phone] Blood Urea Nitrogen BUN 13 mg/dL N 6-24 Lipid Profile (Trig/Chol/HDL) 09/27/2016 [facility] Triglycerides 57 mg /dL N 17 [phone] Cholesterol 182 mg/dL N 18 HDL Cholesterol 52.3 mg/dL N 19 LDL Cholesterol 118 mg/dL N 20 Laboratory test finding 09/27/2016 [facility] Glucose 92 mg/dL N 70- 100 [phone] Blood Urea Nitrogen BUN 11 mg/dL N 6-24 [place] 0.81 mmol/L N 0.6-1.2 TSH (Thyroid Stim Horm) 1.10 mcIU/mL N 0.34-5.60 Vitamin D Total 25(Oh) 39.0 ng/mL N 30-50 Hemoglobin A1c (Glyco HGB) 5.2 % N Less than 6.0 21 Laboratory test 08/25/2016 [facility] Wound Culture/Sensi SEE RESULT 22, 23 finding [phone] BELOW MRSA/S. aureus Ssti PCR SEE RESULT BELOW 24 CBC Auto Diff 06/25/2016 [facility] White Blood Count 7.9 10^3/uL N 3.5-10.8 25 [phone] Red Blood Count 4.81 10^6/uL N 4.0-5.4 Hemoglobin 15.2 g/dL N 12.0-16.0 Hematocrit 45 % N 35-47 Mean Corpuscular Volume 94 fL N 80-97 Mean Corpuscular Hemoglobin 32 pg High 27-31 Mean Corpuscular HGB Conc 33 g/dL N 31-36 Red Cell Distribution Width 13 % N 10.5-15 Platelet Count 227 10^3/uL N 150-450 Mean Platelet Volume 10 um3 N 7.4-10.4 Abs Neutrophils 5.7 10^3/uL N 1.5-7.7 Abs Lymphocytes 1.5 10^3/uL N 1.0-4.8 Abs Monocytes 0.5 10^3/uL N 0-0.8 Abs Eosinophils 0.2 10^3/uL N 0-0.6 Abs Basophils 0.1 10^3/uL N 0-0.2 Abs Nucleated RBC 0.02 10^3/uL N Granulocyte % 71.4 % N 38-83 Lymphocyte % 19.1 % Low 25-47 Monocyte % 5.8 % N 1-9 Eosinophil % 3.0 % N 0-6 Basophil % 0.7 % N 0-2 Nucleated Red Blood Cells % 0.2 N Comp Metabolic Panel 06/25/2016 [facility] Sodium 139 mmol/L N 133- 145 [phone] Potassium 4.3 mmol/L N 3.5-5.0 Chloride 105 mmol/L N 101-111 Co2 Carbon Dioxide 28 mmol/L N 22-32 Anion Gap 6 mmol/L N 2-11 Glucose 86 mg/dL N 70-100 Blood Urea Nitrogen 12 mg/dL N 6-24 Creatinine 0.80 mg/dL N 0.51-0.95 BUN/Creatinine Ratio 15.0 N 8-20 Calcium 9.3 mg/dL N 8.6-10.3 Total Protein 6.5 g/dL N 6.4-8.9 Albumin 4.0 g/dL N 3.2-5.2 Globulin 2.5 g/dL N 2-4 Albumin/Globulin Ratio 1.6 N 1-3 Total Bilirubin 0.30 mg/dL N 0.2-1.0 Alkaline Phosphatase 57 U/L N 34-104 Alt 16 U/L N 7-52 Ast 16 U/L N 13-39 Egfr Non- 75.6 N >60 Egfr 97.3 N >60 26 Laboratory test 06/25/2016 [facility] Monospot Negative N Negative finding [phone] CMV Igg/Igm 06/25/2016 [facility] Cytomegalovirus IgG Positive N Negative 27 [phone] Antibody Cytomegalovirus IgM Antibody Negative N Negative CBC Auto Diff 10/10/2015 [facility] White Blood Count 7.7 10^3/uL N 3.5-10.8 [phone] Red Blood Count 4.48 10^6/uL N 4.0-5.4 Hemoglobin 14.1 g/dL N 12.0-16.0 Hematocrit 44 % N 35-47 Mean Corpuscular Volume 98 fL High 80-97 Mean Corpuscular Hemoglobin 32 pg High 27-31 Mean Corpuscular HGB Conc 32 g/dL N 31-36 Red Cell Distribution Width 13 % N 10.5-15 Platelet Count 224 10^3/uL N 150-450 Mean Platelet Volume 9 um3 N 7.4-10.4 Abs Neutrophils 5.7 10^3/uL N 1.5-7.7 Abs Lymphocytes 1.3 10^3/uL N 1.0-4.8 Abs Monocytes 0.4 10^3/uL N 0-0.8 Abs Eosinophils 0.2 10^3/uL N 0-0.6 Abs Basophils 0 10^3/uL N 0-0.2 Abs Nucleated RBC 0 10^3/uL N Granulocyte % 74.9 % N 38-83 Lymphocyte % 16.7 % Low 25-47 Monocyte % 5.5 % N 1-9 Eosinophil % 2.4 % N 0-6 Basophil % 0.5 % N 0-2 Nucleated Red Blood Cells % 0 N Laboratory test 10/10/2015 [facility] Hepatitis C Nonreactive N Nonreactive finding [phone] Antibody Comp Metabolic 10/10/2015 [facility] Sodium 137 mmol/L N 133-145 Panel [phone] Potassium 4.1 mmol/L N 3.5-5.0 Chloride 107 mmol/L N 101-111 Co2 Carbon Dioxide 27 mmol/L N 22-32 Anion Gap 3 mmol/L N 2-11 Glucose 82 mg/dL N 70-100 Blood Urea Nitrogen 12 mg/dL N 6-24 Creatinine 0.75 mg/dL N 0.51-0.95 BUN/Creatinine Ratio 16.0 N 8-20 Calcium 9.2 mg/dL N 8.6-10.3 Total Protein 6.3 g/dL Low 6.4-8.9 Albumin 4.2 g/dL N 3.2-5.2 Globulin 2.1 g/dL N 2-4 Albumin/Globulin Ratio 2.0 N 1-3 Total Bilirubin 0.40 mg/dL N 0.2-1.0 Alkaline Phosphatase 49 U/L N 34-104 Alt 10 U/L N 7-52 Ast 16 U/L N 13-39 Egfr Non- 81.5 N >60 Egfr 104.8 N >60 28 Laboratory test finding 10/10/2015 [facility] Magnesium 2.0 mg/dL N 1.9-2.7 [phone] TSH (Thyroid Stim Horm) 1.28 ?IU/mL N 0.34-5.60 Vitamin B12 240 pg/mL N 180-914 29 Vitamin D Total 25(Oh) 26.7 ng/mL Low 30-50 Erythrocyte Sed Rate 6 mm/Hr N 0-30 C Reactive Protein < 1.00 mg/L N < 5.00 30 Ferritin 47.2 ng/mL N 11-307 Iron & Iron Binding Capacity 10/10/2015 [facility] Iron 48 g/dL Low 50-212 [phone] Unsaturated Iron Binding 295 g/dL N Total Iron Binding Capacity 343 g/dL N 250-450 % Iron Saturation 14 % Low 15-55 HIV 1/2 AB 10/10/2015 [facility] HIV 1 2 Nonreactive N Nonreactive 31 Evaluation [phone] Antibody Laboratory 05/22/2015 [facility] Surgical SEE RESULT 32, test finding [phone] Pathology BELOW 33 Laboratory 05/22/2015 [facility] Clotest SEE RESULT 34 test finding [phone] BELOW CBC Auto Diff 05/21/2015 [facility] White Blood 8.0 10^3/uL N 4.8- 10.8 [phone] Count Red Blood Count 4.65 10^6/uL N 4.0-5.4 Hemoglobin 12.5 g/dL N 12.0-16.0 Hematocrit 41 % N 35-47 Mean Corpuscular Volume 88 fL N 80-97 Mean Corpuscular Hemoglobin 27 pg N 27-31 Mean Corpuscular HGB Conc 31 g/dL N 31-36 Red Cell Distribution Width 27 % High 10.5-15 35 Platelet Count 215 10^3/uL N 150-450 Mean Platelet Volume 9 um3 N 7.4-10.4 Abs Neutrophils 5.9 10^3/uL N 1.5-7.7 Abs Lymphocytes 1.1 10^3/uL N 1.0-4.8 Abs Monocytes 0.5 10^3/uL N 0-0.8 Abs Eosinophils 0.4 10^3/uL N 0-0.6 Abs Basophils 0.1 10^3/uL N 0-0.2 Abs Nucleated RBC 0 10^3/uL N Granulocyte % 74.0 % N 38-83 Lymphocyte % 14.0 % Low 25-47 Monocyte % 6.1 % N 1-9 Eosinophil % 5.0 % N 0-6 Basophil % 0.9 % N 0-2 Nucleated Red Blood Cells % 0 N Laboratory test finding 05/21/2015 [facility] Ferritin 20.4 ng/mL N 11-307 [phone] Iron & Iron Binding 05/21/2015 [facility] Iron 36 g/dL Low 50-212 Capacity [phone] Unsaturated Iron Binding 367 g/dL N Total Iron Binding Capacity 403 g/dL N 250-450 % Iron Saturation 9 % Low 15-55 Retic Count 05/02/2015 [facility] Retic Count 1.9 % High 0.5-1.5 [phone] Corrected Retic Count 1.5 % N 0.5-1.5 Maturation Factor Retic 1.5 N Retic Index 1.00 N Mean Retic Volume 122.8 N Immature Retic Fraction 0.48 N RBC Retic Count 4.26 10^6/uL Low 4.6-6.2 Hematocrit for Retic CNT 35 % N 35-47 CBC Auto Diff 05/02/2015 [facility] White Blood Count 7.7 10^3/uL N 4.8-10.8 [phone] Red Blood Count 4.26 10^6/uL N 4.0-5.4 Hemoglobin 10.6 g/dL Low 12.0-16.0 Hematocrit 35 % N 35-47 Mean Corpuscular Volume 82 fL N 80-97 Mean Corpuscular Hemoglobin 25 pg Low 27-31 Mean Corpuscular HGB Conc 31 g/dL N 31-36 Red Cell Distribution Width 28 % High 10.5-15 Platelet Count 219 10^3/uL N 150-450 Mean Platelet Volume 9 um3 N 7.4-10.4 Abs Neutrophils 6.3 10^3/uL N 1.5-7.7 Abs Lymphocytes 0.9 10^3/uL Low 1.0-4.8 Abs Monocytes 0.4 10^3/uL N 0-0.8 Abs Eosinophils 0.2 10^3/uL N 0-0.6 Abs Basophils 0.1 10^3/uL N 0-0.2 Abs Nucleated RBC 0 10^3/uL N Granulocyte % 81.0 % N 38-83 Lymphocyte % 11.2 % Low 25-47 Monocyte % 4.6 % N 1-9 Eosinophil % 2.5 % N 0-6 Basophil % 0.7 % N 0-2 Nucleated Red Blood Cells % 0 N Iron & Iron Binding Capacity 04/12/2015 [facility] Iron 20 g/dL Low 50-212 [phone] Unsaturated Iron Binding 501 g/dL N Total Iron Binding Capacity 521 g/dL High 250-450 % Iron Saturation 4 % Low 15-55 Laboratory test 04/12/2015 [facility] Ferritin < 10.0 ng/mL Low 11- 307 finding [phone] Laboratory test 04/11/2015 [facility] Hepatitis C Nonreactive N Nonreactive finding [phone] Antibody Basic Metabolic 04/11/2015 [facility] Sodium 137 mmol/L N 133-145 Panel [phone] Potassium 4.1 mmol/L N 3.5-5.0 Chloride 107 mmol/L N 101-111 Co2 Carbon Dioxide 24 mmol/L N 22-32 Anion Gap 6 mmol/L N 2-11 Glucose 75 mg/dL N 70-100 Blood Urea Nitrogen 9 mg/dL N 6-24 Creatinine 0.66 mg/dL N 0.51-0.95 BUN/Creatinine Ratio 13.6 N 8-20 Calcium 8.8 mg/dL N 8.6-10.3 Egfr Non- 94.8 N >60 Egfr 121.9 N >60 36 CBC Auto Diff 04/11/2015 [facility] White Blood Count 6.0 10^3/uL N 4.8-10.8 [phone] Red Blood Count 4.16 10^6/uL N 4.0-5.4 Hemoglobin 9.5 g/dL Low 12.0-16.0 Hematocrit 31 % Low 35-47 Mean Corpuscular Volume 75 fL Low 80-97 Mean Corpuscular Hemoglobin 23 pg Low 27-31 Mean Corpuscular HGB Conc 30 g/dL Low 31-36 Red Cell Distribution Width 20 % High 10.5-15 Platelet Count 268 10^3/uL N 150-450 Mean Platelet Volume 8 um3 N 7.4-10.4 Abs Neutrophils 4.4 10^3/uL N 1.5-7.7 Abs Lymphocytes 1.1 10^3/uL N 1.0-4.8 Abs Monocytes 0.3 10^3/uL N 0-0.8 Abs Eosinophils 0.1 10^3/uL N 0-0.6 Abs Basophils 0 10^3/uL N 0-0.2 Abs Nucleated RBC 0 10^3/uL N Granulocyte % 73.4 % N 38-83 Lymphocyte % 17.8 % Low 25-47 Monocyte % 5.7 % N 1-9 Eosinophil % 2.4 % N 0-6 Basophil % 0.7 % N 0-2 Nucleated Red Blood Cells % 0.1 N Laboratory test 06/27/2013 [facility] Blood Urea 5 mg/dL Low 6-24 finding [phone] Nitrogen Creatinine 06/27/2013 [facility] Creatinine 0.70 mg/dL 0.50-1.40 [phone] Egfr Non- 89.3 >60 Egfr 114.9 >60 37 Laboratory test 06/27/2013 [facility] TSH (Thyroid 1.03 miu/mL 0.34- 5.60 finding [phone] Stimulating Horm) [place] 0.8 mmol/L 0.5-1.5 Laboratory test finding 11/04/2008 [facility] [place] 0.3 mmol/L Low 0.5-1.5 [phone] BUN 7 mg/dL 6-24 TSH 1.30 MIU/ML 0.34-5.60 CBC With Electronic 06/21/2007 [facility] White Blood 9.2 CUMM 4.8- 10.8 38 Diff [phone] Count Abs Basophils 0 0-0.2 Abs Eosinophils 0.1 0-0.6 Absolute Neutrophil Count 6.7 1.5-7.7 Abs Lymphs 1.8 1.0-4.8 Abs Mononuclear 0.6 0-0.8 Basophil % 0.2 % 0-2 Hematocrit 41 % 35-47 39 Hemoglobin 13.8 g/dL 12.0-16.0 Eosinophil % 1.4 [...] Redcell Distribution WDTH 15 % 10.5-15 1 [id number] 2 Because ethnic data is not always readily [...] 15-29 5 Kidney failure <15 (or dialysis) 3 Not diagnostic. Supplemental testing by immunoblot has been ordered by reflex. Test Performed by: [facility] [employer] [facility] [address] [place] [address] 4 SEE RESULT BELOW Name: TANMAY ISSA : [address]: Amanda MONTERROSO Acct: [id number] Unit: [id number] AGE: 52 Location: [facility] Re07/21/18 SEX: F Status: REG REF SPEC: [id number] TALHA: 07/21/[address]: Amanda MONTERROSO REQ: [id number] RECD: 07/21/18 STATUS: SOUT _ ORDERED: TP IMAGE ANALYS, HPV/Thin Prep COMMENTS: [id number] Negative for Intraepithelial lesion or Malignancy Date Time Test Result Flag (u) Normal Range 07/21/18 1047 @ HPV RNA Negative Negative @ @ The high-risk HPV types detected by the assay include: 16, @ 18, 31, 33, 35, 39, 45, 51, 52, 56, 58, 59, 66, and 68. A. Ectocervical/Endocervical Specimen Adequacy: Satisfactory of evaluation Transformation zone component identified Patient Information: HPV: High risk HPV RNA testing regardless of pap results. Actual Specimen Date: 07/21/18 LMP If Unknown: 4-5 yrs ago Spec Date if unknown: 2009 ?: N Post Menopausal?: Y Hysterectomy?: N Previous Abnormal Pap Smears?:N Signed by and Reported on: AMENA Orozco(ASCP) [id number] This Pap test was evaluated with the assistance of the CertusPrep Test Imaging System. Due to cytologic findings at the bow tacker microscope, comprehensive manual rescreening by a Requirements Engineer may be required. The Pap Smear is a screening test designed to aid in the detection of premalignant and malignant conditions of the uterine cervix. It is not a diagnostic procedure and should not be used as the sole means of detecting cervical cancer. Both false- positive and false- negative reports do occur. Depending on your risk status, a Pap smear should be obtained and evaluated every 1-3 years. END OF REPORT DEPARTMENT OF PATHOLOGY, [address] [place] [address] Chandrakant Benitez M.D. Director [facility] # [id number] 5 Because ethnic data is not always readily [...] 15-29 5 Kidney failure <15 (or dialysis) 6 Therapeutic target for the treatment of diabetes mellitus patients is <7% HBA1C, and in selective patients <6.0%. Please refer to [place] [employer] diabetic care guidelines for further information. 7 Test Performed by: [facility] - [address] [address] 8 REFERENCE VALUE 20.0 - 51.0 Test Performed by: [facility] - [address] [address] 9 ADDITIONAL INFORMATION This test was developed and its performance characteristics determined by [facility] in a manner consistent with CLIA requirements. This test has not been cleared or approved by the U.S. Food and Drug Administration. Test Performed by: [facility] - [address] [address] 10 ADDITIONAL INFORMATION This test was developed and its performance characteristics determined by [facility] in a manner consistent with CLIA requirements. This test has not been cleared or approved by the U.S. Food and Drug Administration. Test Performed by: [facility] - [address] [address] 11 ADDITIONAL INFORMATION This test was developed and its performance characteristics determined by [facility] in a manner consistent with CLIA requirements. This test has not been cleared or approved by the U.S. Food and Drug Administration. Test Performed by: [facility] - [address] [address] 12 Desirable: <150 Borderline High: 150-199 High: 200-499 Very High: >500 13 Desirable: <200 Borderline High: 200-239 High: >239 14 Low: <40 Desirable: 40-60 High: >60 15 Desirable: <100 Near Optimal: 100-129 Borderline High: 130-159 High: 160-189 Very High: >189 16 Because ethnic data is not always readily [...] 15-29 5 Kidney failure <15 (or dialysis) 17 Desirable <150 Borderline high 150-199 High 200-499 Very High >500 18 Desirable <200 Borderline high 200-239 High >239 19 Low <40 Desirable: 40-60 High: >60 20 Desirable: <100 mg/dL Near Optimal: 100-129 mg/dL Borderline High: 130-159 mg/dL High: 160-189 mg/dL Very High: >189 mg/dL 21 Therapeutic target for the treatment of diabetes Mellitus patients is <7% HBA1C, and in selective patients <6.0%.Please refer to [place] [employer] Diabetic care guidelines for further information. 22 [id number] 23 SEE RESULT BELOW Name: TANMAY ISSA : [address]: Duane Dudley MD Acct: [id number] Unit: [id number] AGE: 51 Location: [facility] Re08/25/16 SEX: F Status: DEP ER SPEC: [id number] TALHA: 08/25/16-1442 [facility] DR: Duane Dudley MD REQ: [id number] RECD: 08/25/16 STATUS: SHAYNA MARTÍNEZ DR: Amanda MONTERROSO _ SOURCE: STARLA MORENO SPDESC: ORDERED: Culture Stain COMMENTS: [id number] Procedure Result Reported Site Wound/Misc Gram Stain Preliminary 08/25/16- 1920 ML 4+ Neutrophils 4+ Gram Positive Cocci Wound/Misc Culture PENDING * ML - MAIN LAB ([facility]) . END OF REPORT * ML=Testing performed at Main Lab DEPARTMENT OF PATHOLOGY, [address] [place] [address] Chandrakant Benitez M.D. Director [facility] # [id number] 24 SEE RESULT BELOW Name: ISSA,CINKAYLYN Corley : [address]: Duane Dudley MD Acct: [id number] Unit: [id number] AGE: 51 Location: [facility] Re08/25/16 SEX: F Status: DEP ER SPEC: [id number] TALHA: 08/25/16-1443 [facility] DR: Duane Dudley MD REQ: [id number] RECD: 08/25/16 STATUS: VALENTINA MARTÍNEZ DR: Amanda RENEC _ SOURCE: STARLA MORENO SPDESC: ORDERED: MRSA/SA SSTI, Culture Stain COMMENTS: [id number] Procedure Result Reported Site MRSA/S. aureus SSTI PCR Final 08/25/16- 2030 ML Organism 1 MRSA NEGATIVE Organism 2 S.AUREUS NEGATIVE Wound/Misc Gram Stain Final 08/26/16- 1457 ML 4+ Neutrophils 3+ Gram Positive Cocci 1+ Gram Positive Bacilli Wound/Misc Culture Final 08/27/16- 1250 ML No Growth Day 2 * ML - MAIN LAB ([facility]) . END OF REPORT * ML=Testing performed at Main Lab DEPARTMENT OF PATHOLOGY, [address] [place] [address] Chandrakant Benitez M.D. Director [facility] # [id number] 25 Pt called wondering about results, told her they were not complete but that the mono test was negative. SL 26 Because ethnic data is not always readily [...] 15-29 5 Kidney failure <15 (or dialysis) 27 Test Performed by: [place] [address] [employer] Tower Operator: Jonathan Pan II, M.D., Ph.D. 28 Because ethnic data is not always readily [...] 15-29 5 Kidney failure <15 (or dialysis) 29 Normal Range 180 to 914 Indeterminate Range 145 to 180 Deficient Range <145 30 Acute inflammation: >10.00 31 It is recognized that currently available assays [...] 95% confidence interval of 99.78 to 99.96%. [address] Lozano, provider #99-had to change provider names bc [facility] nurses are "99" and computer was confused. SL 33 SEE RESULT BELOW Name: TANMAY ISSA : [address]: Cam Lozano MD Acct: [id number] Unit: [id number] AGE: 49 Location: [facility] Re05/22/15 SEX: F Status: REG REF SPEC: [id number] TALHA: 05/22/15-[address]: Cam Lozano MD REQ: [id number] RECD: 05/22/155433 STATUS: LINWOOD MARTÍNEZ DR: Juan F Roper DO _ [...] performed at Main Lab DEPARTMENT OF PATHOLOGY, [address] [place] [address] Chandrakant Benitez M.D. Director [facility] # [id number] RUN DATE: 05/24/15 [facility] LAB LIVE PAGE 2 Patient: ISSATANMAY [id number] (Continued) GROSS DESCRIPTION (Continued) Signed (signature on file) Evangelina Johnson MD 12/03 1028 END OF REPORT * ML=Testing performed at Main Lab DEPARTMENT OF PATHOLOGY, [address] [place] [address] Chandrakant Benitez M.D. Director [facility] # [id number] 34 SEE RESULT BELOW Name: TANMAY ISSA : [address]: Cam Lozano MD Acct: [id number] Unit: [id number] AGE: 49 Location: [facility] Re05/22/15 SEX: F Status: REG REF SPEC: [id number] TALHA: 05/22/15-1212 [facility] DR: aCm Lozano MD REQ: [id number] RECD: 05/22/154185 STATUS: VALENTINA MARTÍNEZ DR: Juan F Roper DO _ SOURCE: GAS ANTRUM SPDESC: ORDERED: Clotest Procedure Result Verified Site Clotest Final 05/23/15- 0750 ML Clotest Negative * ML - MAIN LAB ([facility]) . END OF REPORT * ML=Testing performed at Main Lab DEPARTMENT OF PATHOLOGY, [address] [place] [address] Chandrakant Benitez M.D. Director [facility] # [id number] 35 Consistent with previous results on 05/02/15. 36 Because ethnic data is not always readily [...] 15-29 5 Kidney failure <15 (or dialysis) 37 Because ethnic data is not always readily [...] 15-29 5 Kidney failure <15 (or dialysis) 38 SURGERY 06/28/07 39 Lymphopenia % Procedures Date Code Description Status 10/22/2016 76313388 Mammogram Completed 06/21/2015 20585798 Colonoscopy Completed 04/03/2014 63065 Omt 7-8 Body Regions Completed 01/26/2014 87723 Omt 3 To 4 Body Regions Involved Completed 12/28/2013 54884 Osteopathic Manipulative Treament 5-6 Body Regions Completed 11/24/2013 75081 Osteopathic Manipulative Treatment 1 Or 2 Body Region Completed 11/14/2013 71688 Osteopathic Manipulative Treatment 1 Or 2 Body Region Completed 04/25/2013 05908 Anoscopy Diagnostic Completed Encounters Type Date Location Provider Dx Diagnosis Office Visit 08/23/2018 Main Office Laureen Buchanan, L03.311 Cellulitis of 10:00a P.A. abdominal wall Office Visit 07/21/2018 Main Office Amanda Elmore PA Z12.4 Encounter for 9:00a screening for malignant neoplasm of cervix Z23 Encounter for immunization L03.311 Cellulitis of abdominal wall F31.81 Bipolar II disorder Z79.899 Other care home (current) drug therapy Office Visit 07/07/2018 11:20a Main Office Amanda [...] for oth proc for purpose oth than [facility] Office Visit 06/25/2016 2:40p Main Office [...] 09/19/2013 2:30p Main Office Juan F Roper D.O. 723.1 [...] 455.5 Hemorrhoids External W/ Other Complications v06.1 Jefianhqvw-Whdbdju-Nhpehjpm Combined (DTaP) v04.81 Need For Prophylactic Vaccination [...] Maxillary Office Visit 05/24/2008 9:30a Main Office Bradley Calero 724.5 Backache Unspec M.D. 724.2 Lumbago 728.85 [...] Office Visit 12/24/2007 12:55p Main Office Bradley Calero 724.5 Backache Unspec M.D. 724.2 Lumbago 728.85 Spasm Muscle 665.64 Pelvic Joints & Ligaments Damage Cond Or Comp Office Visit 12/14/2007 11:15a Main Office Bradley Calero 665.64 Pelvic Joints & M.D. 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 Doing well on current meds. Will check labs.Z12.31 Encounter for screening mammogram for malignant neoplasm ofComments: Mammogram due--ordered.Follow up:schedule PAP and flu shotM50.122 Cervical disc disorder at C5-C6 level with radiculopathyComments:Seeing Dr. Cuellar at pain clinic. Monitor.M54.40 Lumbago with sciatica, unspecified sideM72.2 Plantar fascial fibromatosisComments:Discussed stretching exercises for plantar fasciitis. If not improving, consider foot Xray to r/o heel spurs.
[2018-09-06 10:29] VITALS: BP 129/81
--- NOTE | 2018-09-06 11:09 | UC ---
Skin Complaint HPI - HPI Summary HPI Summary: Patient presents to urgent care for evaluation of possible tick bite. Patient was seen here Wu 2 weeks ago. Patient with a rash that was positive for Lyme titer on blood work. Patient was started on doxycycline the Julius for evaluation here and that has been continue by her primary. Patient states today she felt a little bump on her lower abdomen the site where her rash was. Patient states she was unable to see it very well and was concerned she had an ache in her skin. Patient states she gets anxious about these things. Patient states overall her rashes has improved and she is feeling better. Patient without any other complaints. Patient's medications reviewed this visit - History of Current Complaint [facility] T[facility] BITE Hx Last Menstrual Period: 2 weeks ago Pain Intensity: 0 - Allergy/Home Medications Allergies/Adverse Reactions: Allergies Allergy/AdvReac Type Severity Reaction Status Date / Time bee venom protein (honey bee) Allergy Anaphylatic Verified 09/06/18 10:29 Shock latex Allergy Rash Verified 09/06/18 10:29 PMH/Surg Hx/FS Hx/Imm Hx Previously Healthy: Yes - Surgical History Surgical History: Yes Surgery Procedure, Year, and Place: TONSILLECTOMY; - Family History Known Family History: Positive: Hypertension, Non-Contributory Negative: Cardiac Disease, Diabetes Family History: lung cancer - Social History Lives: With Family Alcohol Use: Occasionally Substance Use Type: None Smoking Status (MU): Former Smoker Type: Cigarettes Amount Used/How Often: 1 pack per week Have You Smoked in the Last Year: No When Did the Patient Quit Smoking/Using Tobacco: 20+ years Household Exposure Type: Cigarettes - Immunization History Most Recent Tetanus Shot: UNSURE Review of Systems All Other Systems Reviewed And Are Negative: Yes Constitutional: Positive: Negative Skin: Positive: Rash - resolving rash, Other - bump on abdomen - request check for tick Physical Exam - Summary Physical Exam Summary: Vital Signs Reviewed: Yes A+Ox3, no distress Eyes: Conjunctiva Clear ENT: Hearing grossly normal neck: supple Respiratory: Positive: No respiratory distress, No accessory muscle use Cardiovascular: skin color reflect adequate perfusion abd soft + BS no guarding, no rebound Pt with small inflammed follicle - under mangification no retained fb. No discomfort Musculoskeletal Exam: FERRELL x 4 without difficulty Neurological: Positive: Alert, ambulatory without difficulty Psychological: Positive: Normal Response To Family Skin: Positive: no rash, no ecchymosis see abd Triage Information Reviewed: Yes Vital Signs: Initial Vital Signs Temp 98.6 F 09/06/18 10:26 Pulse 70 09/06/18 10:26 Resp 16 09/06/18 10:26 BP 129/81 09/06/18 10:26 Pulse Ox 99 09/06/18 10:26 Course/Dx - Course Course Of Treatment: Patient presents to urgent care for evaluation of skin lesion. Patient states she is concerned she has retained tick. Patient states she was recently started on antibiotic for positive Lyme titer. Patient states her rash is better. Patient states she can't see the area of her abdomen was concerned. On exam, patient with a slightly inflamed follicle. No retained foreign body. Patient given reassurance. Patient also given contact information for Dr. Meng and she left the questions regarding her Lyme. Patient comfortable in agreement with plan. Patient discharged in stable condition - Diagnoses Provider Diagnosis: Inflamed hair follicle Discharge - Sign-Out/Discharge Documenting (check all that apply): Patient Departure All imaging exams completed and their final reports reviewed: No Studies - Discharge Plan Condition: Stable Disposition: HOME Patient Education Materials: Lyme Disease (ED) Referrals: Samuel EDMONDS,Francisco Javier Holland [Medical Doctor] - Amanda Friedman [Primary Care Provider] - Additional Instructions: The doctor that evaluated you today is not concerned about the spot on your skin - it is not a tick or retained part of a tick. It appears to be a small, inflammed hair follicle Continue to take antibiotics as prescribed for lyme's disease Follow-up with your primary as previously prescribed. You have also been given the contact information for Dr. Baker - the infectious disease specialist - you may contact him for follow-up of your lyme's if you have further questions or concerns - Billing Disposition and Condition Condition: STABLE Disposition: Home
== END 2018-09-06 11:22 | disposition home or self-care (01) ==
LOC: UCEAST 10:17
DX: L73.9 Follicular disorder, unspecified (principal); Z87.891 Personal history of nicotine dependence
CPT/HCPCS: 99211; G0463

== ENCOUNTER 2018-12-21 18:28 | Emergency (ER) | payer MEDICARE, MEDICAID ==
[2018-12-21 18:45] VITALS: BP 122/73
--- NOTE | 2018-12-21 19:29 | UC ---
Dental HPI - HPI Summary HPI Summary: 1 WEEK AGO ON 12/13/18 PATIENT HAD A CORTISONE SHOT IN HER NECK. 3 DAYS LATER ON 12/16/18 SHE HAD MOST OF HER TEETH EXTRACTED AND WAS FITTED FOR DENTURES AT [facility]. PATIENT HAS A KNOWN HISTORY OF BIPOLAR DISORDER AND TAKES SEVERAL MEDICATIONS FOR THIS INCLUDING VALIUM, LITHIUM AND ABILIFY. SHE FOLLOWS REGULARLY WITH A COUNSELOR AND PSYCHIATRIST. SINCE HER PROCEDURES SHE HAS HAD AN INCREASED AMOUNT OF ANXIETY AND FEELS HER MEDICATIONS ARE NOT MANAGING HER SYMPTOMS. SHE REPORTS BEING UNABLE TO SLEEP THE PAST FEW DAYS DUE TO PAIN AND BLEEDING FROM HER MOUTH. STATES HER TEETH WERE EXTRACTED UNDER LOCAL ANESTHESIA AND SHE IS HAVING NIGHTMARES ABOUT THE SOUNDS OF HER TEETH CRACKING AND THE SENSATION OF PRESSURE FROM THE EXTRACTION. SHE WAS SEEN IN FOLLOW-UP AT [facility] A COUPLE OF DAYS AGO AND REPORTS THAT THEY WERE PLEASED WITH HER HEALING PROCESS. SHE HAS BEEN TAKING NAPROXEN FOR DISCOMFORT WITHOUT MUCH RELIEF. SHE ADMITS THAT THE EVENTS OF THE PAST WEEK HAVE BEEN A LOT FOR HER TO HANDLE MENTALLY. SHE DENIES SUICIDAL IDEATION OR HOMICIDAL IDEATION. SHE FEELS THAT WITH ADEQUATE PAIN RELIEF SHE WILL BE ABLE TO PUSH THROUGH HER SYMPTOMS. SHE REPORTS A STRONG SOCIAL SUPPORT NETWORK AROUND HER INCLUDING FRIENDS AND FAMILY. - History of Current Complaint Chief Complaint: UCDentalProblem Stated Complaint: TOOTH ACHE Time Seen by Provider: 12/21/18 19:27 Hx Obtained From: Patient Hx Last Menstrual Period: 2 weeks ago Onset/Duration: Lasting Days, Still Present Severity: Moderate Pain Intensity: 6 Pain Scale Used: 0-10 Numeric Alleviating Factor(s): Nothing - Allergies/Home Medications Allergies/Adverse Reactions: Allergies Allergy/AdvReac Type Severity Reaction Status Date / Time bee venom protein (honey bee) Allergy Anaphylatic Verified 12/21/18 18:45 Shock latex Allergy Rash Verified 12/21/18 18:45 PMH/Surg Hx/FS Hx/Imm Hx Psychological History: Bipolar Disorder - Surgical History Surgical History: Yes Surgery Procedure, Year, and Place: TONSILLECTOMY; HEMROIDDECTOMY X 2 - Family History Known Family History: Positive: Hypertension, Non-Contributory Negative: Cardiac Disease, Diabetes Family History: lung cancer - Social History Alcohol Use: Occasionally Substance Use Type: None Smoking Status (MU): Former Smoker Type: Cigarettes Amount Used/How Often: 1 pack per week Have You Smoked in the Last Year: No When Did the Patient Quit Smoking/Using Tobacco: 20+ years Household Exposure Type: Cigarettes - Immunization History Most Recent Tetanus Shot: UNSURE Review of Systems All Other Systems Reviewed And Are Negative: Yes Constitutional: Positive: Negative ENT: Positive: Dental Pain Respiratory: Positive: Negative Cardiovascular: Positive: Negative Gastrointestinal: Positive: Negative Psychological: Positive: Anxious, Depressed Physical Exam Triage Information Reviewed: Yes Appearance: Well-Nourished, Pain Distress - MILD, Other: - APPEARS DISHEVELED Vital Signs: Initial Vital Signs Temp 98.0 F 12/21/18 18:38 Pulse 66 12/21/18 18:38 Resp 18 12/21/18 18:38 BP 122/73 12/21/18 18:38 Pulse Ox 99 12/21/18 18:38 Vital Signs Reviewed: Yes Eyes: Positive: Conjunctiva Clear ENT: Positive: Hearing grossly normal, Pharynx normal Dental: Positive: Other: - DENTURES IN PLACE. PT DECLINES TO REMOVE THEM Neck: Positive: Supple, Nontender, No Lymphadenopathy Respiratory: Positive: No respiratory distress, No accessory muscle use Cardiovascular: Positive: Pulses Normal Abdomen Description: Positive: Soft Musculoskeletal: Positive: No Edema Neurological: Positive: Alert Psychological: Positive: Age Appropriate Behavior Skin: Negative: Rashes Dental Complaint Course/Dx - Course Course Of Treatment: PT SEEMS TO HAVE GOOD INSIGHT INTO HER CONDITION. HAS REGULAR FOLLOW-UP WITH COUNSELING AND PSYCHIATRY. IS CALLING [facility] TOMORROW FOR FOLLOW-UP. WILL GIVE 2-3 DAYS OF HYDROCODONE. ADVISED TO USE FOR BREAKTHROUGH PAIN ONLY AND TO USE WITH CAUTION GIVEN HER OTHER SEDATING MEDICATIONS. DISCUSSED TRANSFER TO ER FOR FURTHER MGMT OF BIPOLAR SYMPTOMS - PT DECLINES. STATES SHE WILL GO TO THE ER IF SHE FEELS SHE IS UNABLE TO COPE AT HOME. SHE DOES NOT SEEM TO BE A THREAT TO HERSELF OR TO ANYONE ELSE. - Differential Dx/Diagnosis Provider Diagnosis: Pain following oral surgery Discharge - Sign-Out/Discharge Documenting (check all that apply): Patient Departure All imaging exams completed and their final reports reviewed: No Studies - Discharge Plan Condition: Stable Disposition: HOME Prescriptions: HYDROcodone/ACETAMIN 5-325 MG* [[place] 5-325 TAB*] 1 tab PO Q6H PRN #10 tab MDD 4 PRN Reason: Pain Naproxen [Naproxen 500 mg tab] 500 mg PO BID PRN #30 tablet PRN Reason: Pain Patient Education Materials: Toothache (ED) Referrals: Ramírez MONTERROSO,Amanda Villareal [Primary Care Provider] - If Needed Additional Instructions: BE AWARE THAT THE PAIN MEDICINE YOU HAVE BEEN PRESCRIBED TODAY CAN CAUSE ADDITIVE SEDATION WITH YOUR OTHER MEDICATIONS. USE NAPROXEN FOR DISCOMFORT AND THE HYDROCODONE FOR BREAKTHROUGH ONLY. DO NOT TAKE SIMULTANEOUSLY WITH YOUR OTHER SEDATING MEDICATIONS. KEEP OUT OF REACH OF ANY KIDS AND PETS. FOLLOW-UP WITH YOUR PSYCHIATRIST TOMORROW. GO TO THE ER WITHOUT FAIL IF YOU FEEL OVERWHELMED OR DEVELOP WORSENING PAIN, PERSISTENT BLEEDING, FEVER OR ANY OTHER CONCERNING SYMPTOMS. - Billing Disposition and Condition Condition: STABLE Disposition: Home
== END 2018-12-21 20:15 | disposition home or self-care (01) ==
LOC: UCEAST 18:28
DX: G89.18 Other acute postprocedural pain (principal); Z98.890 Other specified postprocedural states; K08.109 Complete loss of teeth, unspecified cause, unspecified class; Z87.891 Personal history of nicotine dependence; F31.9 Bipolar disorder, unspecified
CPT/HCPCS: 99212; G0463

== ENCOUNTER 2022-01-13 05:51 | Observation (INO) ==
[2022-01-13] MEDS ORDERED: Buffered Lidocaine 1% SYRIN 1 ml INTRADERM ONE (06:00)
[2022-01-13] MEDS ORDERED: Lactated Ringers 1000 ml BAG 1,000 ML IV SCH (06:00)
[2022-01-13] MEDS ORDERED: ceFAZolin 2 GM PREMIX 2 GM/50 ML BAG ONE ×2 (06:53→12:11)
[2022-01-13] MEDS ORDERED: Bupivacaine 0.5% 50 ML MDV VIAL ONE (07:11)
[2022-01-13] MEDS ORDERED: ceFAZolin VIAL VIAL ONE ×2 (07:11→12:12)
[2022-01-13] MEDS ORDERED: Midazolam 2 mg/2 ml VIAL 1 mg/ml 2 ml VIAL (2 mg) ONE (07:17)
[2022-01-13] MEDS ORDERED: Lidocaine 2% PF 5 ML VIAL ONE (07:17)
[2022-01-13] MEDS ORDERED: fentaNYL 250 mcg/5 ml 50 MCG/ML 5 ml VIAL (250 MCG) ONE (07:17)
[2022-01-13] MEDS ORDERED: Propofol 10 MG/ML 20 ML BTL ONE ×2 (07:17→11:24)
[2022-01-13] MEDS ORDERED: Rocuronium 50 mg VIAL 10 mg/ml 5 ml VIAL (50 mg) ONE (07:17)
[2022-01-13] MEDS ORDERED: Remifentanil 2 MG VIAL ONE (07:28)
[2022-01-13] MEDS ORDERED: Dexamethasone IV 4 MG/ML VIAL 1 ml VIAL ONE ×2 (07:40→09:27)
[2022-01-13] MEDS ORDERED: BUPIVACAINE **LIPOSOME/PF 13.3 MG/ML (266MG/ 20ML) VIAL (RESTRICTED) INFIL ONE (08:00)
[2022-01-13] MEDS ORDERED: Phenylephrine 40 mcg/mL 10mL (400mcg) SYRINGE ONE (09:27)
[2022-01-13] MEDS ORDERED: Sevoflurane BOTTLE ONE (10:04)
[2022-01-13] MEDS ORDERED: Ondansetron 4 mg VIAL 2 MG/ML 2 ml VIAL ONE (10:08)
[2022-01-13] MEDS ORDERED: Acetaminophen IV 1 GM/100ML 100 ML IV ONE (11:42)
[2022-01-13] MEDS ORDERED: HYDROcodone/ACETAMIN 5/325 mg TAB PO PRN ×2 (13:36→13:47)
[2022-01-13] MEDS ORDERED: Magnesium Hydroxide LIQ 30 ML UDC PO PRN (13:36)
[2022-01-13] MEDS ORDERED: Ondansetron 4 mg VIAL 2 MG/ML 2 ml VIAL IV PRN ×2 (13:36→13:47)
[2022-01-13] MEDS ORDERED: Naloxone 0.4 mg VIAL 0.4 mg/ml 1 ml VIAL IV PRN (13:47)
[2022-01-13] MEDS ORDERED: Metoclopramide 5 MG/ML VIAL (10 mg) IV PRN (13:47)
[2022-01-13] MEDS ORDERED: fentaNYL 100 mcg/2 ml 50 MCG/ML VIAL ONE (13:50)
[2022-01-13] MEDS: fentaNYL 100 mcg/2 ml 50 MCG/ML VIAL IV PRN ×4 (13:58→14:54)
[2022-01-13] MEDS: HYDROcodone/ACETAMIN 5/325 mg TAB PO PRN ×2 (17:18→22:23)
[2022-01-14] MEDS: HYDROcodone/ACETAMIN 5/325 mg TAB PO PRN ×3 (02:21→16:02)
[2022-01-14 07:39] LABS: Calcium 9.4 mg/dL (8.6-10.3); Magnesium 1.9 mg/dL (1.9-2.7); Potassium 3.9 mmol/L (3.5-5.0); eGFR CKD-EPI 102.6 (>60)
[2022-01-14 16:30] VITALS: BP 138/82
== END 2022-01-14 18:55 | disposition home or self-care (01) ==
LOC: SSU 05:51 → OR 05:51
PROVIDERS: ADMIT Neurological Surgery; ATTEND Neurological Surgery